=== PATIENT | male | born 1955 | race Two or more races ===

== ENCOUNTER 2025-09-13 18:41 | Inpatient (IN) | payer MEDICARE, MEDICAID ==
[~2025-09-13] VITALS: Ht 160 cm; Wt 68.0 kg
--- NOTE | 2025-09-13 18:53 | ED.PDOC ---
History of Present Illness HPI Comments REVIEW OF SYSTEMS: General: No fever, no chills, or fatigue HEENT: No sore throat, no earache, no congestion, no neck pain. Cardiac: No chest pain. No palpitations. Lungs: (+) shortness of breath, no cough. GI: No nausea, no vomiting, no diarrhea, no constipation, no abdominal pain : No dysuria, frequency, or urgency. No hematuria. Musculoskeletal: No joint pain , no joint swelling, no extremity edema. Skin: No rash, no itching. Neuro: No headache, no dizziness, no weakness EXAM: General: Awake, alert and oriented. No acute distress. Skin: Skin in warm, dry and intact. Appropriate color for ethnicity. HEENT: The head is normocephalic and atraumatic. Conjunctivae are clear without exudates or hemorrhage. Sclera is non-icteric. EOM are intact. No signs of nystagmus. Eyelids are normal in appearance without swelling or lesions. Oral mucosa is pink and moist Neck: The neck is supple with normal range of motion. No JVD. Cardiac: Heart rate and rhythm are normal. No murmurs, gallops, or rubs are auscultated. Respiratory: No signs of respiratory distress. Lung sounds are clear in all lobes bilaterally without rales, rhonchi, or wheezes. Abdominal: Abdomen is soft, non-tender without distention. Bowel sounds are present and normoactive in all four quadrants. Extremities: Upper and lower extremities are atraumatic in appearance without deformity or edema. Neurological: The patient is awake, alert and oriented to person, place, and time with normal speech. Speech is clear. There is no facial asymmetry. Psychiatric: Appropriate mood and affect. Good judgement and insight Chief Complaint: Shortness of breath Time Seen by MD: 18:52 Reviewed Notes: [employer] Notes Allergies: Coded Allergies: Iodine (Unverified Allergy, Unknown, 05/31/25) Information Source: Patient, Emergency Med Personnel Mode of Arrival: EMS Past Medical History PAST MEDICAL HISTORY: CHF, CKF, COPD, CVA, DM, High Lipids, HTN, Liver, [place] Family History Family History: Family hx of heart shoaib Social History Smoker: Non-Smoker Alcohol: Denies ETOH Use Drugs: Denies Drug Use Lives In: Home Was a procedure done? Was a procedure done?: No Differential Dx Considerations may include: COPD, congestive heart failure, pneumonia, acute respiratory failure Time of 1ST Reevaluation: 18:49 Reevaluation 1ST: Unchanged Patient Education/Counseling: Need For Follow Up Family Education/Counseling: No Family Present Critical Care Note Critical Care Time?: Yes (35 min-critical care time only) Stability Stability form required: No Heart Score Heart Score: Heart Score Response (Comments) Value History Slightly Suspicious 0 EKG Repolarization Disturb 1 Age >65 2 Risk Factors 1 or 2 risk factors 1 Troponin Normal limit 0 Total 4 I personally scribed for ROME CHEEMA MD ([email or web address]) on 09/13/25 at 18:53. Electronically submitted by Michael Gallego ([email or web address]). I personally scribed for ROME CHEEMA MD ([email or web address]) on 09/13/25 at 18:59. Electronically submitted by Michael Gallego (Hotreader). ROME CHEEMA MD Sep 13, 2025 18:53
--- NOTE | 2025-09-13 19:07 | ECG ---
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
--- NOTE | 2025-09-13 19:32 | ED.PDOC ---
SOB-HPI HPI Comments This is a 69 year old male BIBA presenting to the ED with chief complaint of SOB. Patient reports that he has been experiencing SOB worsening over the past 3 days with associated weakness. Patient relays that his weakness is currently making him unable to get out of bed on his own, calling 911 for assistance. Patient denies any cough, fever, chills, N/V, chest pain, or syncope. Chief Complaint: Shortness of Breath Time Seen by MD: 19:30 Reviewed notes: Nurses Notes, Medications, Allergies Information Source: Patient Mode of Arrival: EMS Severity: Moderate Timing: Days Duration: Since onset Context: At Rest PE Risk Factors: None History of: COPD, CHF Prehospital treatment: None Modifying Factors: Nothing Past Medical History PAST MEDICAL HISTORY: CHF, CKF, COPD, CVA, DM, High Lipids, HTN, Liver, [place] Surgical History: Denies all surgeries Family History Family History: Reviewed,noncontributory to illness, Family hx of heart shoaib Social History Smoker: Non-Smoker Alcohol: Denies ETOH Use Drugs: Denies Drug Use Lives In: Home Constitutional: reports: weakness; denies: chills, diaphoresis, fatigue, fever, malaise, sweats, others EENTM: denies: blurred vision, double vision, ear bleeding, ear discharge, ear drainage, ear pain, ear ringing, eye pain, eye redness, hearing loss, mouth pain, mouth swelling, nasal discharge, nose bleeding, nose congestion, nose pain, photophobia, tearing, throat pain, throat swelling, voice changes, others Respiratory: reports: shortness of breath; denies: cough, hemoptysis, orthopnea, SOB at rest, SOB with excertion, stridor, wheezing, others Cardiovascular: denies: chest pain, dizzy spells, diaphoresis, Dyspnea on exertion, edema, irregular heart beat, left arm pain, lightheadedness, palpitations, PND, syncope, others Gastrointestinal: denies: abdomen distended, abdominal pain, blood streaked bowels, constipated, diarrhea, dysphagia, difficulty swallowing, hematemesis, melena, nausea, poor appetite, poor fluid intake, rectal bleeding, rectal pain, vomiting, others Genitourinary: denies: burning, dysuria, flank pain, frequency, hematuria, incontinence, penile discharge, penile sore, pain, testicle pain, testicle swelling, urgency, others Neurological: denies: dizziness, fainting, headache, left sided numbness, left sided weakness, numbness, paresthesia, pre-existing deficit, right sided numbness, right sided weakness, seizure, speech problems, tingling, tremors, weakness, others Musculoskeletal: denies: back pain, gout, joint pain, joint swelling, muscle pain, muscle stiffness, neck pain, others Integumetry: denies: bruises, change in color, change in hair/nails, dryness, laceration, lesions, lumps, rash, wounds, others Allergic/Immunocompromised: denies: Difficulty Healing, Frequent Infections, Hives, Itching, others Hematologic/Lymphatic: denies: anemia, blood clots, easy bleeding, easy bruising, swollen glands, others Endocrine: denies: excessive hunger, excessive sweating, excessive thirst, excessive urination, flushing, intolerance to cold, intolerance to heat, unexplained weight gain, unexplained weight loss, others Psychiatric: denies: anxiety, bipolar disorder, depression, hopeless, panic disorder, schizophrenia, sleepless, suicidal, others All Other Systems: Reviewed and Negative Physical Exam General Appearance: No Apparent Distress, Normal HEENT: Normal ENT Inspection, Pharynx Normal, TMs Normal Neck: Full Range of Motion, Non-Tender, Normal, Normal Inspection Respiratory: Chest Non-Tender, Lungs Clear, No Accessory Muscle Use, No Respiratory Distress, Normal Breath Sounds Cardiovascular: No Edema, No JVD, No Murmur, No Gallop, Normal Peripheral Pulses, Regular Rate/Rhythm Breast Exam: Deferred Gastrointestinal: No Organomegaly, Non Tender, No Pulsatile Mass, Normal Bowel Sounds, Soft Genitalia: Deferred Pelvic: Deferred Rectal: Deferred Extremities: No calf tenderness, Normal capillary refill, Normal inspection, Normal range of motion, Non-tender, No pedal edema Musculoskeletal : Apperance: Normal Neurologic: Alert, 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 Was a procedure done?: No Differential Dx Differential Diagnosis: Cardiogenic Shock, CHF, COPD, Dysrhythmia, Hypertension, Hyponatremia, Myocardial infarction X-Ray, Labs, Meds, VS Vital Signs Date Time Temp Pulse Resp B/P (MAP) Pulse Ox O2 Delivery O2 Flow Rate FiO2 09/13/25 19:53 18 99 Nasal Cannula* 2 28 09/13/25 18:51 94 09/13/25 18:41 97.5 92 19 144/98 97 97.5 Lab Test 09/13/25 20:48 09/13/25 19:40 Range/Units Troponin I High Sensitivity Pending 64 *H </=54 ng/L White Blood Count 11.4 H 4.4-10.8 10^3/uL Red Blood Count 4.10 L 4.5-5.90 10^6/uL Hemoglobin 11.4 L 13.5-17.5 g/dL Hematocrit 35.1 L 41.0-53.0 % Mean Corpuscular Volume 85.6 80.0-100.0 fL Mean Corpuscular Hemoglobin 27.9 L 28.0-32.0 pg Mean Corpuscular Hemoglobin Concent 32.6 32.0-36.0 g/dL Red Cell Distribution Width 16.9 H 11.8-14.3 % Platelet Count 204 140-450 10^3/uL Mean Platelet Volume 8.1 6.9-10.8 fL Neutrophils (%) (Auto) 80.3 H 37.0-80.0 % Lymphocytes (%) (Auto) 12.0 10.0-50.0 % Monocytes (%) (Auto) 6.4 0.0-12.0 % Eosinophils (%) (Auto) 0.5 0.0-7.0 % Basophils (%) (Auto) 0.8 0.0-2.0 % Neutrophils # (Auto) 9.2 H 1.6-8.6 10 ^3/uL Lymphocytes # (Auto) 1.4 0.4-5.4 10 ^3/uL Monocytes # (Auto) 0.7 0-1.3 10 ^3/uL Eosinophils # (Auto) 0.1 0-0.8 10 ^3/uL Basophils # (Auto) 0.1 0-0.2 10 ^3/uL Nucleated Red Blood Cells 0.1 % Sodium Level 143 136-145 mmol/L Potassium Level 4.7 3.5-5.1 mmol/L Chloride Level 109 H 98-107 mmol/L Carbon Dioxide Level 21 20-31 mmol/L Anion Gap 13 5-15 Blood Urea Nitrogen 52 H 9-23 mg/dL Creatinine 3.22 H 0.700-1.30 mg/dL Glomerular Filtration Rate Calc 20 >90 mL/min BUN/Creatinine Ratio 16.1 10.0-20.0 Serum Glucose 99 74-106 mg/dL Lactic Acid Level 1.2 0.4-2.0 mmol/L Calcium Level 9.0 8.7-10.4 mg/dL Total Bilirubin 0.9 0.2-1.0 mg/dL Aspartate Amino Transferase (AST) 108 H 13-40 U/L Alanine Aminotransferase (ALT) 124 H 7-40 U/L Alkaline Phosphatase 125 H 46-116 U/L B-Type Natriuretic Peptide 1913.25 0-100 pg/mL Total Protein 6.5 5.7-8.2 g/dL Albumin 4.0 3.2-4.8 g/dL Current Medications Medications (Trade) Dose Ordered Sig/Alexandrea Route Start Time Stop Time Status Last Admin Albuterol (Ventolin Medneb) 2.5 mg ONCE ONCE NEB 09/13/25 19:30 09/13/25 19:31 DC 09/13/25 19:53 Ipratropium [place] (Atrovent Medneb) 0.5 mg ONCE ONCE NEB 09/13/25 19:30 09/13/25 19:31 DC 09/13/25 19:53 Methylprednisolone Sodium Succinate (Solu Medrol) 125 mg ONCE ONCE IM 09/13/25 19:30 09/13/25 19:31 DC 09/13/25 21:05 [place] [id number] Ph: [phone] DIAGNOSTIC IMAGING Diagnostic Imaging Report : [id number] Signed PATIENT: AZUL MCELROY ACCT: [id number] UNIT: [id number] : 1955 LOC: ER ROOM / BED: / AGE / SEX: 69 / M ADM STATUS: REG ER SERVICE 17 ORDERING PHYSICIAN: RANJANA FRANZ PROCEDURE(s): CXR1 - CHEST XRAY 1 VIEW REASON: SOB ORDER NUMBER(s): [id number], ACCESSION NUMBER(s): [id number] CHEST RADIOGRAPH Indication: SOB Technique: Single frontal view of the chest was obtained Comparison: XY CHEST PORTABLE on DOS: 05/31/25 FINDINGS: Lines and Tubes: None Lungs: No focal consolidation. Diffuse interstitial prominence. Indistinctness of the left hemidiaphragm which may be from overlying cardiac silhouette. No pneumothorax. Cardiomediastinal contours: [id number] cardiomegaly. Midline sternotomy wires are noted. Valvular replacement is noted. Bones: No acute osseous abnormality. IMPRESSION: Cardiomegaly with findings suggestive of congestive heart failure. Underlying infectious process can not be excluded. ATED BY: CHERYL SHARMA DO DICTATED DATE/TIME: 09/13/251947 SIGNED BY: CHERYL SHARMA DO SIGNED DATE/TIME: 09/13/251947 CC: X-Ray, Labs, Meds, VS Comment Patient will be admitted for COPD exacerbation, CHF exacerbation, acute elevated troponins , acute kidney injury Patient is started on Bumex, given breathing treatments Recommend cardiac consult and pulmonology consult Patient hemodynamically stable Images Reviewed?: Images reviewed and evaluated by me Time of 1ST Reevaluation: 18:49 Reevaluation 1ST: Unchanged Patient Education/Counseling: Diagnosis, Treatment Family Education/Counseling: No Family Present SEPSIS Sepsis Screen Date sepsis recognized/suspect: Sep 13, 2025 Time Sepsis recognized/suspect: 1899 Recent Procedure: No On Antibiotic Therapy: No Respiratory Rate >20: No Heart Rate >90: No Temp<36 C (96.8 F) or >38.3 C: No SBP <90 or MAP <65 mmHG: No New Acute Mental Status Change: No Is the patient on CPAP, BIPAP,: No Physician Orders Urinalysis (09/13/25 19:18) Chest Xray 1 View (09/13/25 19:18) Troponin-I Hs (09/13/25 20:18) Troponin-I Hs (09/13/25 22:18) Vital Signs Date Time Temp Pulse Resp B/P (MAP) Pulse Ox O2 Delivery O2 Flow Rate FiO2 09/13/25 19:53 18 99 Nasal Cannula* 2 28 09/13/25 18:51 94 09/13/25 18:41 97.5 92 19 144/98 97 97.5 Laboratory Tests Test 09/13/25 19:40 Lactic Acid Level 1.2 mmol/L (0.4-2.0) White Blood Count 11.4 10^3/uL (4.4-10.8) H Medications Medications Dose Ordered Sig/Alexandrea Route Start Time Stop Time Status Last Admin Dose Admin Albuterol 2.5 mg ONCE ONCE NEB 09/13/25 19:30 09/13/25 19:31 DC 09/13/25 19:53 Ipratropium [place] 0.5 mg ONCE ONCE NEB 09/13/25 19:30 09/13/25 19:31 DC 09/13/25 19:53 Methylprednisolone Sodium Succinate 125 mg ONCE ONCE IM 09/13/25 19:30 09/13/25 19:31 DC 09/13/25 21:05 Departure 1 Departure Time of Disposition: 18:49 Impression: Primary Impression: CHF (congestive heart failure) Qualified Codes: I50.22 - Chronic systolic (congestive) heart failure Additional Impressions: COPD (chronic obstructive pulmonary disease) Qualified Codes: J44.1 - Chronic obstructive pulmonary disease with (acute) exacerbation Acute kidney injury Elevated troponin Disposition: ADMITTED INPATIENT Condition: Stable Critical Care Note Critical Care Time?: No Stability Stability form required: No Heart Score Heart Score: Heart Score Response (Comments) Value History N/A 0 EKG N/A 0 Age N/A 0 Risk Factors N/A 0 Troponin N/A 0 Total 0 I personally scribed for RANJANA FRANZ ([email or web address]) on 09/13/25 at 19:32. Electronically submitted by Daljit Richardson ([email or web address]). I personally scribed for RANJANA FRANZP ([email or web address]) on 09/13/25 at 19:57. Electronically submitted by Daljit Richardson ([email or web address]). RANJANA FRANZ Sep 13, 2025 19:32
--- NOTE | 2025-09-13 19:50 | DVH ---
CHEST RADIOGRAPH Indication: SOB Technique: Single frontal view of the chest was obtained Comparison: XY CHEST PORTABLE on DOS: 05/31/25 FINDINGS: Lines and Tubes: None Lungs: No focal consolidation. Diffuse interstitial prominence. Indistinctness of the left hemidiaphragm which may be from overlying cardiac silhouette. No pneumothorax. Cardiomediastinal contours: [id number] cardiomegaly. Midline sternotomy wires are noted. Valvular replacement is noted. Bones: No acute osseous abnormality. IMPRESSION: Cardiomegaly with findings suggestive of congestive heart failure. Underlying infectious process can not be excluded.
[2025-09-13] MEDS: ALBUTEROL SULF 2.5 MG/0.5ML(0.5%) NEB SOLN NEB ONE ×2 (19:53→22:00)
[2025-09-13] MEDS: IPRATROPIUM BROM 0.5 MG/2.5ML INH SOL NEB ONE ×2 (19:53→21:59)
[2025-09-13 20:17] LABS: Hematocrit 35.1 % (41.0-53.0); Hemoglobin 11.4 g/dL (13.5-17.5); Mean Corpuscular Hemoglobin 27.9 pg (28.0-32.0); Mean Corpuscular Volume 85.6 fL (80.0-100.0); Nucleated Red Blood Cells % 0.1 %
[2025-09-13 20:34] LABS: Albumin 4.0 g/dL (3.2-4.8); Anion Gap 13 (5-15); BUN/Creatinine Ratio 16.1 (10.0-20.0); Calcium 9.0 mg/dL (8.7-10.4); Carbon Dioxide 21 mmol/L (20-31); Glucose 99 mg/dL (74-106); Potassium 4.7 mmol/L (3.5-5.1); Sodium 143 mmol/L (136-145); Total Protein 6.5 g/dL (5.7-8.2)
[2025-09-13 20:35] LABS: Bilirubin, Total 0.9 mg/dL (0.2-1.0)
[2025-09-13 20:37] LABS: Alanine Aminotransferase 124 U/L (7-40); Alkaline Phosphatase 125 U/L (46-116); Blood Urea Nitrogen 52 mg/dL (9-23); Chloride 109 mmol/L (98-107)
[2025-09-13] MEDS: methylPREDNISolone SOD SUCC 125 MG/2 ML VL IM ONE (21:05)
[2025-09-13] MEDS ORDERED: NITROGLYCERIN 0.4 MG SL TAB SL PRN (22:45)
[2025-09-13] MEDS ORDERED: MORPHINE SULFATE INJ 2 MG/ml SYRG IV PRN (22:45)
[2025-09-13] MEDS ORDERED: ONDANSETRON HCL 4 MG/2 ML VIAL IV PRN (22:45)
[2025-09-13] MEDS ORDERED: DEXTROSE (50%) 50ML SYRG IV PRN (22:45)
[2025-09-13 22:52] VITALS: BP 144/98; PULSE 92; RESP 20; TEMP 97.5; O2SAT 94
[2025-09-13 23:17] LABS: INR 1.36 (0.9-1.15); Partial Thromboplastin Time 31.9 SEC (24.5-34.5); Prothrombin Time 14.0 sec (9.3-11.8)
[2025-09-14] VITALS (14 sets, daily range): BP systolic 126; BP diastolic 83; PULSE 80–100; RESP 14–22; TEMP 97.6; O2SAT 93–100
--- NOTE | 2025-09-14 01:01 | DVHHP2 ---
History of Present Illness Reason for Visit: Shortness for breath History of Present Illness 69-year-old male presents for evaluation of shortness for breath. Patient endorses a three day history of worsening shortness for breath with associated chest tightness. Denies leg swelling or abdominal distention. No other acute complaints reported. Past Medical History CVA, diabetes mellitus, dyslipidemia, hypertension, liver disease, COPD, chronic kidney disease Past Surgical History Denies Family History Noncontributory Smoke: No ALCOHOL: none Drugs: None Lives: with Family Review of Systems Review of Systems Review of systems are currently negative otherwise addressed in HPI. Allergies: Coded Allergies: Iodine (Unverified Allergy, Unknown, 05/31/25) Medications Current Medications Medications Dose Ordered Sig/Alexandrea Route Start Time Stop Time Status Last Admin Dose Admin Furosemide 40 mg BIDD IV 09/14/25 06:00 Atorvastatin Calcium 80 mg HS PO 09/14/25 22:00 Metoprolol Tartrate 50 mg BID PO 09/14/25 10:00 Sacubitril/ Valsartan 1 tab BID PO 09/14/25 10:00 Sodium Bicarbonate 650 mg TID PO 09/14/25 06:00 Albuterol 2.5 mg Q6HPRN PRN NEB 09/13/25 22:45 Diagnostic Test (Pha) 1 strip Q6HR 09/14/25 00:00 Insulin Human Regular Q6HR SC 09/14/25 00:00 Dextrose 50 ml UD PRN IV 09/13/25 22:45 Ondansetron HCl 4 mg Q4HP PRN IV 09/13/25 22:45 Acetaminophen 650 mg Q6HP PRN PO 09/13/25 22:45 Nitroglycerin 0.4 mg Q5MINP PRN SL 09/13/25 22:45 Morphine Sulfate 2 mg Q30M PRN IV 09/13/25 22:45 Exam Vital Signs Vital Signs Date Time Temp Pulse Resp B/P (MAP) Pulse Ox O2 Delivery O2 Flow Rate FiO2 09/13/25 22:52 97.5 92 20 144/98 94 2.0 97.5 09/13/25 22:00 Nasal Cannula* 28 Exam Gen: 69-year-old male in mild distress. Skin: Warm, dry, normal color and texture, no rash. HEENT: Normocephalic atraumatic, mucous membranes moist and pink. Neck: Cervical and supraclavicular nodes normal without enlargement, trachea is midline, thyroid gland is normal without masses. Pulmonary: Clear to auscultation and percussion bilaterally. Cardiac: Regular rate and rhythm. No murmur Abdomen: Soft, nontender, nondistended, bowel sounds present all 4 quadrants, no guarding, no rigidity, no organomegaly. Extremities: No cyanosis, clubbing, no edema Neuro: Cranial nerves II through XII grossly intact, normal affect and speech, no focal motor deficits. Labs/Xrays ORDERING PHYSICIAN: RANJANA FRANZ PROCEDURE(s): CXR1 - CHEST XRAY 1 VIEW REASON: SOB ORDER NUMBER(s): [id number], ACCESSION NUMBER(s): [id number] CHEST RADIOGRAPH Indication: SOB Technique: Single frontal view of the chest was obtained Comparison: XY CHEST PORTABLE on DOS: 05/31/25 FINDINGS: Lines and Tubes: None Lungs: No focal consolidation. Diffuse interstitial prominence. Indistinctness of the left hemidiaphragm which may be from overlying cardiac silhouette. No pneumothorax. Cardiomediastinal contours: [id number] cardiomegaly. Midline sternotomy wires are noted. Valvular replacement is noted. Bones: No acute osseous abnormality. IMPRESSION: Cardiomegaly with findings suggestive of congestive heart failure. Underlying infectious process can not be excluded. Labs Test 09/13/25 22:45 09/13/25 19:40 Range/Units Troponin I High Sensitivity 64 *H </=54 ng/L White Blood Count 11.4 H 4.4-10.8 10^3/uL Red Blood Count 4.10 L 4.5-5.90 10^6/uL Hemoglobin 11.4 L 13.5-17.5 g/dL Hematocrit 35.1 L 41.0-53.0 % Mean Corpuscular Volume 85.6 80.0-100.0 fL Mean Corpuscular Hemoglobin 27.9 L 28.0-32.0 pg Mean Corpuscular Hemoglobin Concent 32.6 32.0-36.0 g/dL Red Cell Distribution Width 16.9 H 11.8-14.3 % Platelet Count 204 140-450 10^3/uL Mean Platelet Volume 8.1 6.9-10.8 fL Neutrophils (%) (Auto) 80.3 H 37.0-80.0 % Lymphocytes (%) (Auto) 12.0 10.0-50.0 % Monocytes (%) (Auto) 6.4 0.0-12.0 % Eosinophils (%) (Auto) 0.5 0.0-7.0 % Basophils (%) (Auto) 0.8 0.0-2.0 % Neutrophils # (Auto) 9.2 H 1.6-8.6 10 ^3/uL Lymphocytes # (Auto) 1.4 0.4-5.4 10 ^3/uL Monocytes # (Auto) 0.7 0-1.3 10 ^3/uL Eosinophils # (Auto) 0.1 0-0.8 10 ^3/uL Basophils # (Auto) 0.1 0-0.2 10 ^3/uL Nucleated Red Blood Cells 0.1 % Prothrombin Time 14.0 H 9.3-11.8 sec Prothrombin Time INR 1.36 H 0.9-1.15 Activated Partial Thromboplast Time 31.9 24.5-34.5 SEC Sodium Level 143 136-145 mmol/L Potassium Level 4.7 3.5-5.1 mmol/L Chloride Level 109 H 98-107 mmol/L Carbon Dioxide Level 21 20-31 mmol/L Anion Gap 13 5-15 Blood Urea Nitrogen 52 H 9-23 mg/dL Creatinine 3.22 H 0.700-1.30 mg/dL Glomerular Filtration Rate Calc 20 >90 mL/min BUN/Creatinine Ratio 16.1 10.0-20.0 Serum Glucose 99 74-106 mg/dL Lactic Acid Level 1.2 0.4-2.0 mmol/L Calcium Level 9.0 8.7-10.4 mg/dL Total Bilirubin 0.9 0.2-1.0 mg/dL Aspartate Amino Transferase (AST) 108 H 13-40 U/L Alanine Aminotransferase (ALT) 124 H 7-40 U/L Alkaline Phosphatase 125 H 46-116 U/L B-Type Natriuretic Peptide 1913.25 0-100 pg/mL Total Protein 6.5 5.7-8.2 g/dL Albumin 4.0 3.2-4.8 g/dL SEPSIS Sepsis Screen Date sepsis recognized/suspect: Sep 13, 2025 Time Sepsis recognized/suspect: 1899 Recent Procedure: No On Antibiotic Therapy: No Respiratory Rate >20: No Heart Rate >90: No Temp<36 C (96.8 F) or >38.3 C: No SBP <90 or MAP <65 mmHG: No New Acute Mental Status Change: No Is the patient on CPAP, BIPAP,: No Physician Orders Urinalysis (09/13/25 19:18) Chest Xray 1 View (09/13/25 19:18) Furosemide Injection (Lasix Injection) (09/14/25 06:00) Atorvastatin (Lipitor) (09/14/25 22:00) Metoprolol Tartrate Tablet (Lopressor Ta (09/14/25 10:00) Sacubitril-Valsartan (Entresto 24-26 Mg (09/14/25 10:00) Sodium Bicarb Tab (09/14/25 06:00) * Cardiology Consult (09/13/25 22:31) *[facility] (09/13/25 22:31) Albuterol Medneb (Ventolin Medneb) (09/13/25 22:45) Basic Metabolic Panel (09/14/25 04:00) Glucose Blood (Accu-Chek Comfort Curve T (09/14/25 00:00) Insulin R (Human) (Insulin R) (09/14/25 00:00) Dextrose 50% Syringe (09/13/25 22:45) Admit (09/13/25 22:31) Renal Standard(2gna,3gk,Lopho) (09/14/25 Breakfast) Ondansetron Hcl (Zofran) (09/13/25 22:45) Echo 2d Mode Cardiac Dop (09/13/25 22:31) Condition: Fair (09/13/25 22:31) Acetaminophen Tablet (Tylenol Tablet) (09/13/25 22:45) Bedrest With Bathroom Privileg (09/13/25 22:31) Nitroglycerin Sublingual (Ntrostat Subli (09/13/25 22:45) Morphine Sulfate Injection (09/13/25 22:45) Stat Ekg For Chest Pain (09/13/25 22:31) Notify Md Of Changes From Base (11/10/25 22:31) Lastex Thread Winder For 24 Hours (09/13/25 22:31) Emergency Dysrhythmia Protocol (09/13/25 22:31) Rhythm Strips Once Every Shift (09/13/25 22:31) Oxygen By Nasal Cannula (09/13/25 22:31) Vital Signs Date Time Temp Pulse Resp B/P (MAP) Pulse Ox O2 Delivery O2 Flow Rate FiO2 09/13/25 22:52 97.5 92 20 144/98 94 2.0 97.5 09/13/25 22:00 20 94 Nasal Cannula* 2 28 09/13/25 19:53 18 99 Nasal Cannula* 2 28 09/13/25 18:51 94 09/13/25 18:41 97.5 92 19 144/98 97 97.5 Laboratory Tests Test 09/13/25 19:40 Lactic Acid Level 1.2 mmol/L (0.4-2.0) White Blood Count 11.4 10^3/uL (4.4-10.8) H Medications Medications Dose Ordered Sig/Alexandrea Route Start Time Stop Time Status Last Admin Dose Admin Albuterol 2.5 mg ONCE ONCE NEB 09/13/25 19:30 09/13/25 19:31 DC 09/13/25 19:53 2.5 MG Albuterol 2.5 mg ONCE ONCE NEB 09/13/25 21:30 09/13/25 21:31 DC 09/13/25 22:00 2.5 MG Ipratropium [place] 0.5 mg ONCE ONCE NEB 09/13/25 19:30 09/13/25 19:31 DC 09/13/25 19:53 0.5 MG Ipratropium [place] 0.5 mg ONCE ONCE NEB 09/13/25 21:30 09/13/25 21:31 DC 09/13/25 21:59 0.5 MG Methylprednisolone Sodium Succinate 125 mg ONCE ONCE IM 09/13/25 19:30 09/13/25 19:31 DC 09/13/25 21:05 125 MG Assessment/Plan Assessment/Plan Assessment Acute on chronic congestive heart failure Diabetes mellitus Hypertension Elevated troponin, demand ischemia Renal failure Transaminitis, possible venous congestion Plan Admit the patient to telemetry to the hospitalist Cardiology consultation Nephrology consultation Resume home medications Continue treatment per orders Plan discussed with: Patient My Orders Orders - XU LORA AGACNP Procedure Category Date Status Time Furosemide Injection PHA 09/14/25 In Process (Lasix Injection) 06:00 Atorvastatin (Lipitor) PHA 09/14/25 In Process 22:00 Metoprolol Tartrate PHA 09/14/25 In Process Tablet (Lopressor Ta 10:00 Sacubitril-Valsartan PHA 09/14/25 In Process (Entresto 24-26 Mg 10:00 Sodium Bicarb Tab PHA 09/14/25 In Process 06:00 * Cardiology Consult CONS 09/13/25 Transmitted 22:31 *[facility] CONS 09/13/25 Transmitted -[place] 22:31 Albuterol Medneb PHA 09/13/25 In Process (Ventolin Medneb) 22:45 Basic Metabolic Panel LAB 09/14/25 Logged 04:00 Glucose Blood PHA 09/14/25 In Process (Accu-Chek Comfort 00:00 Insulin R (Human) PHA 09/14/25 In Process (Insulin R) 00:00 Dextrose 50% Syringe PHA 09/13/25 In Process 22:45 Admit ADMIT 09/13/25 Transmitted 22:31 Renal DIET 09/14/25 Transmitted Standard(2gna,3gk,Lopho) Breakfast Ondansetron Hcl PHA 09/13/25 In Process (Zofran) 22:45 Echo 2d Mode Cardiac US 09/13/25 Logged DOP 22:31 Condition: Fair [facility] 09/13/25 In Process 22:31 Acetaminophen Tablet PHA 09/13/25 In Process (Tylenol Tablet) 22:45 Bedrest With Bathroom [place] 09/13/25 In Process Privileg 22:31 Nitroglycerin [facility] 09/13/25 In Process Sublingual (Ntrostat 22:45 Morphine Sulfate PHA 09/13/25 In Process Injection 22:45 Stat Ekg For Chest [facility] 09/13/25 In Process Pain 22:31 Notify Of Changes [facility] 09/13/25 In Process From Base 22:31 Lastex Thread Winder For [facility] 09/13/25 In Process 24 Hours 22:31 Emergency Dysrhythmia [facility] 09/13/25 In Process Protocol 22:31 Rhythm Strips Once [facility] 09/13/25 In Process Every Shift 22:31 Oxygen By Nasal RT 09/13/25 Transmitted Cannula 22:31 Date of Service: Sep 13, 2025 Billing Provider: XU LORA Common Visit Codes: [id number] INP/OBS CARE (HIGH) XU LORA Sep 14, 2025 01:01
[2025-09-14] MEDS: InsuLIN REG 1unit/0.01ml Soln (100units/ml) SC SCH (01:43)
[2025-09-14] MEDS: ACCU-CHEK COMFORT CURVE STRIP VI SCH (01:45)
[2025-09-14] MEDS: BUMETANIDE 1mg/4ml VIAL (0.25mg/ml) IV ONE (02:22)
[2025-09-14] MEDS: HYDROcodone-ACET 7.5/325MG TAB PO ONE (03:35)
[2025-09-14] MEDS: ALBUTEROL SULF 2.5 MG/0.5ML(0.5%) NEB SOLN NEB PRN (04:49)
[2025-09-14 05:41] LABS: Urine Protein, UAD 1+ (Negative)
[2025-09-14] MEDS: FUROSEMIDE 40 MG/4 ML VIAL IV SCH (06:00)
[2025-09-14] MEDS: SODIUM BICARBONATE 650 MG TAB PO SCH (06:00)
[2025-09-14 07:20] LABS: Potassium 4.6 mmol/L (3.5-5.1); Sodium 143 mmol/L (136-145)
[2025-09-14 07:21] LABS: Anion Gap 15 (5-15); Carbon Dioxide 20 mmol/L (20-31)
[2025-09-14 07:22] LABS: Calcium 8.8 mg/dL (8.7-10.4)
[2025-09-14 07:27] LABS: BUN/Creatinine Ratio 15.0 (10.0-20.0)
[2025-09-14 07:32] LABS: Blood Urea Nitrogen 50 mg/dL (9-23); Chloride 108 mmol/L (98-107); Glucose 224 mg/dL (74-106)
[2025-09-14 08:00] LABS: Hematocrit 33.4 % (41.0-53.0); Hemoglobin 10.6 g/dL (13.5-17.5); Mean Corpuscular Hemoglobin 27.8 pg (28.0-32.0); Mean Corpuscular Volume 87.5 fL (80.0-100.0); Nucleated Red Blood Cells % 0.1 %
--- NOTE | 2025-09-14 09:59 | DVHCONRES ---
Date Seen: Sep 14, 2025 Resident Creating Document: PAULINO OWENS RESIDENT Referring Physician GENO SANCHEZ History of Present Illness This is a 69-year-old male with diabetes mellitus type 2 on insulin for the past 5 years, heart failure with reduced ejection fraction-EF 30%, COPD on 2 L home oxygen, history of CVA, asthma, aortic valve replacement 2003 on warfarin, CKD stage 4 who presented to the ER with a chief complaint of shortness of breaths for the past 3 days. Patient had dental extraction on 09/11, following which he started to feel fevers and chills, associated with shortness of breaths and productive cough. With greenish brown phlegm patient increased his oxygen re quirement from 2 L to 3 L which did not improve his condition. He reports compliance to Lasix, he takes 40 mg in the day, 20 mg in the night. Patient reports generalized weakness. Transthoracic echocardiogram from 05/12/2025 reveals an EF of 30% with moderate to severe mitral insufficiency and moderate tricuspid regurgitation. Past MedicalSurgical History: Diabetes Mellitus type 2, HFrEF 30%, COPD with home oxygen 2L, CVA, asthma, CKD stage 4,aortic valve replacement 2003 on warfarin Past Social History: The patient lives at home, smokes 3 cigarettes per day, denies alcohol or illicit drugs abuse. Home medication: Warfarin, Entresto, Lasix 20 mg b.i.d., hydralazine TDS, metoprolol, isosorbide dinitrate, dapagliflozin Allergies: Coded Allergies: Iodine (Unverified Allergy, Unknown, 05/31/25) Current Medications Current Medications Medications (Trade) Dose Ordered Sig/Alexandrea Route PRN Reason Start Time Stop Time Status Last Admin Furosemide (Lasix Injection) 40 mg BIDD IV 09/14/25 06:00 09/14/25 06:00 Atorvastatin Calcium (Lipitor) 80 mg HS PO 09/14/25 22:00 Metoprolol Tartrate (Lopressor Tablet) 50 mg BID PO 09/14/25 10:00 Sacubitril/ Valsartan (Entresto 24-26 Mg tab) 1 tab BID PO 09/14/25 10:00 Sodium Bicarbonate 650 mg TID PO 09/14/25 06:00 09/14/25 06:00 Albuterol (Ventolin Medneb) 2.5 mg Q6HPRN PRN NEB SHORTNESS OF BREATH 09/13/25 22:45 09/14/25 04:49 Diagnostic Test (Pha) (Accu-Chek Comfort Curve T) 1 strip Q6HR 09/14/25 00:00 09/14/25 06:00 Insulin Human Regular (InsuLIN R) Q6HR SC 09/14/25 00:00 09/14/25 07:00 Dextrose 50 ml UD PRN IV Blood Sugar LESS THAN 60 09/13/25 22:45 Ondansetron HCl (Zofran) 4 mg Q4HP PRN IV NAUSEA / VOMITING 09/13/25 22:45 Acetaminophen (Tylenol Tablet) 650 mg Q6HP PRN PO PAIN SCALE 1-3 OR TEMP>100.4 09/13/25 22:45 Nitroglycerin (Ntrostat Sublingual) 0.4 mg Q5MINP PRN SL FOR CHEST PAIN 09/13/25 22:45 Morphine Sulfate 2 mg Q30M PRN IV FOR CHEST PAIN 09/13/25 22:45 Warfarin Sodium (Coumadin Per Rx Protocol) RX PROTOCOL PER PHARMACY PO 09/14/25 01:00 Ipratropium [place] (Atrovent Medneb) 0.5 mg Q6HR NEB 09/14/25 12:00 Ceftriaxone Sodium 50 ml @ 100 mls/hr DAILY@09 IV 09/14/25 09:00 09/14/25 09:04 Doxycycline Monohydrate (Vibramycin Tablet) 100 mg Q12HR PO 09/14/25 10:00 Vital Signs Vital Signs Date Time Temp Pulse Resp B/P (MAP) Pulse Ox O2 Delivery O2 Flow Rate FiO2 09/14/25 08:00 94 09/14/25 08:00 16 137/85 (102) 100 09/14/25 07:30 Nasal Cannula* 2 28 09/14/25 05:45 97.8 97.8 Physical Exam Overweight male patient lying in bed comfortably, no acute distress General: Overweight, palor, mucosae are moist Cardiovascular: Regular S1 and S2. No murmurs, gallops or rubs. No JVD elevation. No pedal edema Respiratory: Resolving Bilateral coarse rales heard on auscultation, more on left lower as compared to right. On NC 2 L saturating 94. Abdomen: Soft, nontender, nondistended, normoactive bowel sounds, no rebound tenderness, no organomegaly, no masses. Bruising seen on lower abdomen. Genitourinary: Deferred MSK/skin: Mobilizes 4 limbs. Skin is dry and warm Neurological: No motor, no sensitive deficits, normal speech. Pupils are isocoric and reactive. Psych/Mental Status: A/Ox3 Labs/Diagnostic Data Labs Test 09/14/25 08:50 09/14/25 06:53 09/14/25 06:32 09/13/25 22:45 Range/Units Vitamin B12 Level 417 211-911 pg/mL POC Glucose 195 H 70-106 mg/dl White Blood Count 8.2 # 4.4-10.8 10^3/uL Red Blood Count 3.82 L 4.5-5.90 10^6/uL Hemoglobin 10.6 L 13.5-17.5 g/dL Hematocrit 33.4 L 41.0-53.0 % Mean Corpuscular Volume 87.5 80.0-100.0 fL Mean Corpuscular Hemoglobin 27.8 L 28.0-32.0 pg Mean Corpuscular Hemoglobin Concent 31.7 L 32.0-36.0 g/dL Red Cell Distribution Width 16.5 H 11.8-14.3 % Platelet Count 153 140-450 10^3/uL Mean Platelet Volume 8.2 6.9-10.8 fL Neutrophils (%) (Auto) 97.1 H 37.0-80.0 % Lymphocytes (%) (Auto) 1.8 L 10.0-50.0 % Monocytes (%) (Auto) 0.8 0.0-12.0 % Eosinophils (%) (Auto) 0.1 0.0-7.0 % Basophils (%) (Auto) 0.2 0.0-2.0 % Neutrophils # (Auto) 8.0 1.6-8.6 10 ^3/uL Lymphocytes # (Auto) 0.1 L 0.4-5.4 10 ^3/uL Monocytes # (Auto) 0.1 0-1.3 10 ^3/uL Eosinophils # (Auto) 0 0-0.8 10 ^3/uL Basophils # (Auto) 0 0-0.2 10 ^3/uL Nucleated Red Blood Cells 0.1 % Sodium Level 143 136-145 mmol/L Potassium Level 4.6 3.5-5.1 mmol/L Chloride Level 108 H 98-107 mmol/L Carbon Dioxide Level 20 20-31 mmol/L Anion Gap 15 5-15 Blood Urea Nitrogen 50 H 9-23 mg/dL Creatinine 3.33 H 0.700-1.30 mg/dL Glomerular Filtration Rate Calc 19 >90 mL/min BUN/Creatinine Ratio 15.0 10.0-20.0 Serum Glucose 224 #H 74-106 mg/dL Hemoglobin A1c 5.6 <5.7 % A1C Calcium Level 8.8 8.7-10.4 mg/dL Thyroid Stimulating Hormone (TSH) 1.20 0.55-4.78 uIU/mL D-Dimer, Quantitative 0.84 H 0.0-0.49 mg/L FEU Troponin I High Sensitivity 64 *H </=54 ng/L Test 09/13/25 19:40 09/13/25 05:20 Range/Units Prothrombin Time 14.0 H 9.3-11.8 sec Prothrombin Time INR 1.36 H 0.9-1.15 Activated Partial Thromboplast Time 31.9 24.5-34.5 SEC Lactic Acid Level 1.2 0.4-2.0 mmol/L Total Bilirubin 0.9 0.2-1.0 mg/dL Aspartate Amino Transferase (AST) 108 H 13-40 U/L Alanine Aminotransferase (ALT) 124 H 7-40 U/L Alkaline Phosphatase 125 H 46-116 U/L B-Type Natriuretic Peptide 1913.25 0-100 pg/mL Total Protein 6.5 5.7-8.2 g/dL Albumin 4.0 3.2-4.8 g/dL Urine Color Colorless Yellow Urine Clarity Clear Clear Urine pH 5.0 5.0-9.0 Urine Specific [place] 1.008 1.001-1.035 Urine Protein 1+ H Negative Urine Ketones Negative Negative Urine Blood Trace H Negative /uL Urine Nitrite Negative Negative Urine Bilirubin Negative Negative Urine Urobilinogen Normal Negative mg/dL Urine Leukocyte Esterase Negative Negative /uL Urine RBC None seen 0 - 3 /hpf Urine Microscopic WBC < 1 0-3 /HPF Urine Squamous Epithelial Cells None seen <5 /hpf Urine Bacteria None seen None Seen /hpf Urine Glucose Trace Normal mg/dL Assessment Acute on chronic decompensated HFrEF, NYHA class III NTSEMI, type II secondary to above Nonischemic cardiomyopathy Severe aortic stenosis status post open-heart with mechanical valve replacement (on warfarin therapy) Mitral valve/tricuspid valve regurgitation, moderate to severe degree Acute hypoxic respiratory failure secondary to pneumonia Acute kidney injury likely superimposed on CKD stage 4 in the setting of pneumonia Pulmonary hypertension Anemia likely chronic kidney disease Secondary hyperparathyroidism Hypertension Hyperlipidemia History of CVA Obesity Plan/Recommendation Continue preload and afterload reduction as tolerated by patient blood pressures and renal function. Continue diuresis with Lasix 40 mg IV b.i.d. Continue GDMT for HFrEF as renal function permits, avoid nephrotoxic agents. Maintain Coumadin levels at therapeutic range for an INR in between 2-3. Continue lipid lowering agent. Strict I&Os, cardiac diet, fluid restriction If the patient is unable to tolerate aggressive preload and afterload reduction, and remains symptomatic, consider transfer to higher level of care for mitral clip evaluation. Nephrology consult and recommendations pending. Thank you for allowing us to care for this patient. Please call with any questions or concerns. Plan discussed with patient in which all questions have been answered Case discussed with Dr. Gutiérrez Plan discussed with: Patient Visit Coding Cardiology RES Date of Service: Sep 14, 2025 Billing Provider: NICOLE CARD Sr., MD Cardiology Common Codes: CONSULT ONLY PAULINO OWENS RESIDENT Sep 14, 2025 09:58
[2025-09-14] MEDS: SACUBITRIL-VALSARTAN 24mg/26mg TAB PO SCH (10:07)
[2025-09-14] MEDS: METOPROLOL TARTRATE 50 MG TAB PO SCH (10:07)
[2025-09-14] MEDS: DOXYCYCLINE 100 MG TAB/CAP PO SCH (10:08)
[2025-09-14 10:12] LABS: Magnesium 2.0 mg/dL (1.6-2.6)
[2025-09-14 11:13] LABS: INR 2.07 (0.9-1.15); Partial Thromboplastin Time 32.3 SEC (24.5-34.5); Prothrombin Time 20.4 sec (9.3-11.8)
--- NOTE | 2025-09-14 11:36 | DVH ---
INDICATION: MICHELLE TECHNIQUE: Multiple real-time sonographic images of the kidneys and bladder were obtained. COMPARISON: US KIDNEY on DOS: 10/16/24, US BILAT LOWER DVT on DOS: 08/10/24, US KIDNEY on DOS: 07/25/24, US LT UPPER DVT on DOS: 06/12/24, US KIDNEY on DOS: 06/06/24 FINDINGS: The right kidney measures 8 cm in length, which is normal in size. . No hydronephrosis. The left kidney measures 10 cm in length, which is normal in size. . No hydronephrosis. Increased bilateral echogenicity. No large intraluminal masses are seen in the bladder. Prior to voiding the bladder volume measures volume 155 cc. IMPRESSION: 1. Normal sonographic appearance of the kidneys. No hydronephrosis. Thickening of the bladder wall. Correlate with UA 2. Bilateral medical renal disease.
--- NOTE | 2025-09-14 12:04 | DVHSR ---
APPROVED REPORT EXAM: Two-dimensional and M-mode echocardiogram with Doppler and color Doppler. Blood Pressure: 140/93 mmHg INDICATION EF Surgery/Intervention Valve Replacement: Mechanical Type: AV RISK FACTORS Height: 63, Weight: 154 DIMENSIONS LVDd 5.1 (3.8-5.7cm) LA (2D) 4.6 (1.9-4.0cm) Aortic Root (2.0-3.7cm) LVDs 4.2 (2.5-4.0cm) LA (MM) (1.9-4.0cm) Aortic Cusp Exc (1.5-2.0cm) EF (%) 40.0 (55-70%) Rt. Atrium 4.8 (1.9-4.0cm) Asc. Aorta cm Mitral Valve Mitral Mitral Stenosis E wave 1.53m/s MV Mean GR. 6mmHg A wave 0.89m/s MV Peak GR. 150mmHg E/A ratio 1.7 2D MVA cm2 DECEL Time 152ms PRESS 1/2 Time 37ms IVRT ms Dop MVA 5.89cm2 Aortic Valve Aortic Valve Aortic Stenosis V1 0.82m/s AO Mean GR. 19mmHg V2 2.84m/s AO Peak GR. 32mmHg LVOT Diameter 2.2 (1.8-2.4cm) Doppler VIDAL 1.10cm2 Pulmonic Valve V2 0.78m/s Tricuspid Valve TR Velocity 3.84m/s RVSP 73mmHg Conclusion lvef 40% dilated LV cavity mild s/p mAVR, no sig AI severe mitral regurg moderate mitral stenosis, mean gradient of 6 mmhg severe tricuspid regurg trivial to small pericardial effusion ntoed
[2025-09-14] MEDS: IPRATROPIUM BROM 0.5 MG/2.5ML INH SOL NEB SCH (14:00)
--- NOTE | 2025-09-14 14:06 | DVHINCON2 ---
Date of service: Sep 14, 2025 Referring Physician DANIEL Smiley Reason for Consultation MICHELLE on Chronic kidney disease History of Present Illness 69-year-old patient with significant history chronic kidney disease stage 4, hypertension, CHF, history of CVA, history of aortic valve replacement in 2003 on warfarin, diabetes type 2 who presents to the hospital because of worsening shortness of breath on exertion, orthopnea PND with minimal leg swelling for the last three days associated with generalized weakness for which he called 911 for assistance, he denies nausea vomiting diarrhea chest pain. He endorses generalized malaise and no new change in medications except for a tooth extraction He has been taking his furosemide 40 mg twice a day without improvement of his symptoms and he denies eating salty food or excessive fluid intake for the last 3-4 days. Laboratory data reviewed GFR of 19. Chest x-ray shows cardiomegaly with pulmonary vascular congestion. Past Medical History Diabetes type 2, CHF, hypertension Past Surgical History Denied Allergies: Coded Allergies: Iodine (Unverified Allergy, Unknown, 05/31/25) Current Medications Current Medications Medications (Trade) Dose Ordered Sig/Alexandrea Route PRN Reason Start Time Stop Time Status Last Admin Furosemide (Lasix Injection) 40 mg BIDD IV 09/14/25 06:00 09/14/25 06:00 Atorvastatin Calcium (Lipitor) 80 mg HS PO 09/14/25 22:00 Metoprolol Tartrate (Lopressor Tablet) 50 mg BID PO 09/14/25 10:00 09/14/25 10:07 Sacubitril/ Valsartan (Entresto 24-26 Mg tab) 1 tab BID PO 09/14/25 10:00 09/14/25 10:07 Sodium Bicarbonate 650 mg TID PO 09/14/25 06:00 09/14/25 06:00 Albuterol (Ventolin Medneb) 2.5 mg Q6HPRN PRN NEB SHORTNESS OF BREATH 09/13/25 22:45 09/14/25 04:49 Diagnostic Test (Pha) (Accu-Chek Comfort Curve T) 1 strip Q6HR 09/14/25 00:00 09/14/25 12:13 Insulin Human Regular (InsuLIN R) Q6HR SC 09/14/25 00:00 09/14/25 12:17 Dextrose 50 ml UD PRN IV Blood Sugar LESS THAN 60 09/13/25 22:45 Ondansetron HCl (Zofran) 4 mg Q4HP PRN IV NAUSEA / VOMITING 09/13/25 22:45 Acetaminophen (Tylenol Tablet) 650 mg Q6HP PRN PO PAIN SCALE 1-3 OR TEMP>100.4 09/13/25 22:45 Nitroglycerin (Ntrostat Sublingual) 0.4 mg Q5MINP PRN SL FOR CHEST PAIN 09/13/25 22:45 Morphine Sulfate 2 mg Q30M PRN IV FOR CHEST PAIN 09/13/25 22:45 Warfarin Sodium (Coumadin Per Rx Protocol) RX PROTOCOL PER PHARMACY PO 09/14/25 01:00 Ipratropium [place] (Atrovent Medneb) 0.5 mg Q6HR NEB 09/14/25 12:00 Ceftriaxone Sodium 50 ml @ 100 mls/hr DAILY@09 IV 09/14/25 09:00 09/14/25 09:04 Doxycycline Monohydrate (Vibramycin Tablet) 100 mg Q12HR PO 09/14/25 10:00 09/14/25 10:08 Tramadol HCl (Ultram) 50 mg Q6HP PRN PO MODERATE PAIN (4-6 PAIN SCALE) 09/14/25 14:00 UNV Family History Hypertension in the family Social History Denies smoking alcohol or drug abuse Review of Systems HEENT: Oral mucosa dry Neck no JVD Cardiovascular: Denies for chest pain denies Positive orthopnea or PND Respiratory: Denies cough or Positive for shortness of breath Gastrointestinal: Denies for nausea vomiting Musculoskeletal: Denies myalgias Neurological: Denies focal weakness Dermatological: Denies any rash The rest of the review of systems were reviewed pertinent positives and pertinent negatives are as per HPI up to 12 points review of systems H&P Exam Vital Signs/I&O Vital Sign Date Time Temp Pulse Resp B/P (MAP) Pulse Ox O2 Delivery O2 Flow Rate FiO2 09/14/25 12:12 97.8 85 18 136/89 (105) 98 97.8 09/14/25 07:30 Nasal Cannula* 2 28 Physical Exam HEENT: No evidence of JVD, no oral ulcers. Pulmonary: Diminished on auscultation bilaterally Cardiovascular S1-S2, no S3 or S4 Abdomen: Bowel sounds positive, soft no rebound tenderness Skin: No rash Neurological: Alert, oriented, no focal weakness Labs/Diagnostic Data Labs/Diagnostic Data Laboratory Tests Test 09/14/25 12:12 09/14/25 11:06 09/14/25 10:44 09/14/25 08:50 Range/Units POC Glucose 158 H 70-106 mg/dl Prothrombin Time 20.4 H 9.3-11.8 sec Prothrombin Time INR 2.07 H 0.9-1.15 Activated Partial Thromboplast Time 32.3 24.5-34.5 SEC Phosphorus Level 4.6 2.4-5.1 mg/dL Magnesium Level 2.0 1.6-2.6 mg/dL Vitamin B12 Level 417 211-911 pg/mL Vitamin D 25-Hydroxy 39.8 30.0-100 ng/mL Parathyroid Hormone (Intact) 204.8 H 18.4-80.1 pg/mL Test 09/14/25 06:53 09/14/25 06:32 09/13/25 22:45 09/13/25 20:48 Range/Units POC Glucose 195 H 70-106 mg/dl White Blood Count 8.2 # 4.4-10.8 10^3/uL Red Blood Count 3.82 L 4.5-5.90 10^6/uL Hemoglobin 10.6 L 13.5-17.5 g/dL Hematocrit 33.4 L 41.0-53.0 % Mean Corpuscular Volume 87.5 80.0-100.0 fL Mean Corpuscular Hemoglobin 27.8 L 28.0-32.0 pg Mean Corpuscular Hemoglobin Concent 31.7 L 32.0-36.0 g/dL Red Cell Distribution Width 16.5 H 11.8-14.3 % Platelet Count 153 140-450 10^3/uL Mean Platelet Volume 8.2 6.9-10.8 fL Neutrophils (%) (Auto) 97.1 H 37.0-80.0 % Lymphocytes (%) (Auto) 1.8 L 10.0-50.0 % Monocytes (%) (Auto) 0.8 0.0-12.0 % Eosinophils (%) (Auto) 0.1 0.0-7.0 % Basophils (%) (Auto) 0.2 0.0-2.0 % Neutrophils # (Auto) 8.0 1.6-8.6 10 ^3/uL Lymphocytes # (Auto) 0.1 L 0.4-5.4 10 ^3/uL Monocytes # (Auto) 0.1 0-1.3 10 ^3/uL Eosinophils # (Auto) 0 0-0.8 10 ^3/uL Basophils # (Auto) 0 0-0.2 10 ^3/uL Nucleated Red Blood Cells 0.1 % Sodium Level 143 136-145 mmol/L Potassium Level 4.6 3.5-5.1 mmol/L Chloride Level 108 H 98-107 mmol/L Carbon Dioxide Level 20 20-31 mmol/L Anion Gap 15 5-15 Blood Urea Nitrogen 50 H 9-23 mg/dL Creatinine 3.33 H 0.700-1.30 mg/dL Glomerular Filtration Rate Calc 19 >90 mL/min BUN/Creatinine Ratio 15.0 10.0-20.0 Serum Glucose 224 #H 74-106 mg/dL Hemoglobin A1c 5.6 <5.7 % A1C Calcium Level 8.8 8.7-10.4 mg/dL Thyroid Stimulating Hormone (TSH) 1.20 0.55-4.78 uIU/mL D-Dimer, Quantitative 0.84 H 0.0-0.49 mg/L FEU Troponin I High Sensitivity 64 *H 69 *H </=54 ng/L Test 09/13/25 19:40 09/13/25 05:20 Range/Units White Blood Count 11.4 H 4.4-10.8 10^3/uL Red Blood Count 4.10 L 4.5-5.90 10^6/uL Hemoglobin 11.4 L 13.5-17.5 g/dL Hematocrit 35.1 L 41.0-53.0 % Mean Corpuscular Volume 85.6 80.0-100.0 fL Mean Corpuscular Hemoglobin 27.9 L 28.0-32.0 pg Mean Corpuscular Hemoglobin Concent 32.6 32.0-36.0 g/dL Red Cell Distribution Width 16.9 H 11.8-14.3 % Platelet Count 204 140-450 10^3/uL Mean Platelet Volume 8.1 6.9-10.8 fL Neutrophils (%) (Auto) 80.3 H 37.0-80.0 % Lymphocytes (%) (Auto) 12.0 10.0-50.0 % Monocytes (%) (Auto) 6.4 0.0-12.0 % Eosinophils (%) (Auto) 0.5 0.0-7.0 % Basophils (%) (Auto) 0.8 0.0-2.0 % Neutrophils # (Auto) 9.2 H 1.6-8.6 10 ^3/uL Lymphocytes # (Auto) 1.4 0.4-5.4 10 ^3/uL Monocytes # (Auto) 0.7 0-1.3 10 ^3/uL Eosinophils # (Auto) 0.1 0-0.8 10 ^3/uL Basophils # (Auto) 0.1 0-0.2 10 ^3/uL Nucleated Red Blood Cells 0.1 % Prothrombin Time 14.0 H 9.3-11.8 sec Prothrombin Time INR 1.36 H 0.9-1.15 Activated Partial Thromboplast Time 31.9 24.5-34.5 SEC Sodium Level 143 136-145 mmol/L Potassium Level 4.7 3.5-5.1 mmol/L Chloride Level 109 H 98-107 mmol/L Carbon Dioxide Level 21 20-31 mmol/L Anion Gap 13 5-15 Blood Urea Nitrogen 52 H 9-23 mg/dL Creatinine 3.22 H 0.700-1.30 mg/dL Glomerular Filtration Rate Calc 20 >90 mL/min BUN/Creatinine Ratio 16.1 10.0-20.0 Serum Glucose 99 74-106 mg/dL Lactic Acid Level 1.2 0.4-2.0 mmol/L Calcium Level 9.0 8.7-10.4 mg/dL Total Bilirubin 0.9 0.2-1.0 mg/dL Aspartate Amino Transferase (AST) 108 H 13-40 U/L Alanine Aminotransferase (ALT) 124 H 7-40 U/L Alkaline Phosphatase 125 H 46-116 U/L Troponin I High Sensitivity 64 *H </=54 ng/L B-Type Natriuretic Peptide 1913.25 0-100 pg/mL Total Protein 6.5 5.7-8.2 g/dL Albumin 4.0 3.2-4.8 g/dL Urine Color Colorless Yellow Urine Clarity Clear Clear Urine pH 5.0 5.0-9.0 Urine Specific [place] 1.008 1.001-1.035 Urine Protein 1+ H Negative Urine Ketones Negative Negative Urine Blood Trace H Negative /uL Urine Nitrite Negative Negative Urine Bilirubin Negative Negative Urine Urobilinogen Normal Negative mg/dL Urine Leukocyte Esterase Negative Negative /uL Urine RBC None seen 0 - 3 /hpf Urine Microscopic WBC < 1 0-3 /HPF Urine Squamous Epithelial Cells None seen <5 /hpf Urine Bacteria None seen None Seen /hpf Urine Glucose Trace Normal mg/dL Chest x-ray show pulmonary vascular congestion Assessment Assessment: Acute kidney injury on Chronic kidney disease four. Likely secondary to cardiorenal syndrome NSTEMI Nonischemic cardiomyopathy Severe aortic stenosis status post mechanical valve replacement Moderate to severe mitral regurgitation Acute hypoxic respiratory failure secondary to pneumonia Pneumonia Pulmonary hypertension Anemia likely chronic kidney disease Secondary hyperparathyroidism Hypertension Hyperlipidemia History of CVA Obesity Plan/Recommendation Continue with furosemide IV 40 mg twice a day, strict urinary output measurement, fluid restriction less than 1 L per day, Cardiology consult appreciated No indication for your previous diet with Antibiotics as per primary team Warfarin as per pharmacy recommendations Thank you very much Plan discussed with: Patient HARVEY MALAVE MD Sep 14, 2025 14:06
[2025-09-14 14:33] LABS: COVID19 ANTIGEN SOFIA FIA NEGATIVE (NEGATIVE)
--- NOTE | 2025-09-14 16:51 | DVHINCON2 ---
Date of service: Sep 14, 2025 Referring Physician Baljit SANCHEZ Reason for Consultation CHF History of Present Illness This is a 69-year-old male with a PMH of diabetes mellitus type 2 on insulin for the past 5 years, heart failure with reduced ejection fraction-EF 30%, COPD on 2 L home oxygen, history of CVA, asthma, aortic valve replacement 2004 on warfarin, CKD stage 4 who presented to the ED with a complaint of shortness of breath for the past 3 days. Patient had a recent dental extraction on 09/11, following which he started to feel fevers and chills, associated with shortness of breaths and productive cough with greenish brown phlegm. Patient increased his oxygen requirement from 2 L to 3 L which did not improve his condition. He reports compliance to Lasix, he takes 40 mg in the day, 20 mg in the night. Patient reports generalized weakness. Transthoracic echocardiogram from 05/12/2025 reveals an EF of 30% with moderate to severe mitral insufficiency and moderate tricuspid regurgitation. Chest x-ray shows cardiomegaly with findings suggestive of congestive heart failure, underlying infectious process can not be excluded. Patient was admitted to the hospital. I am asked to consult on this patient. Allergies: Coded Allergies: Iodine (Unverified Allergy, Unknown, 05/31/25) Current Medications Current Medications Medications (Trade) Dose Ordered Sig/Alexandrea Route PRN Reason Start Time Stop Time Status Last Admin Furosemide (Lasix Injection) 40 mg BIDD IV 09/14/25 06:00 09/14/25 06:00 Atorvastatin Calcium (Lipitor) 80 mg HS PO 09/14/25 22:00 Metoprolol Tartrate (Lopressor Tablet) 50 mg BID PO 09/14/25 10:00 09/14/25 10:07 Sacubitril/ Valsartan (Entresto 24-26 Mg tab) 1 tab BID PO 09/14/25 10:00 09/14/25 10:07 Sodium Bicarbonate 650 mg TID PO 09/14/25 06:00 09/14/25 06:00 Albuterol (Ventolin Medneb) 2.5 mg Q6HPRN PRN NEB SHORTNESS OF BREATH 09/13/25 22:45 09/14/25 04:49 Diagnostic Test (Pha) (Accu-Chek Comfort Curve T) 1 strip Q6HR 09/14/25 00:00 09/14/25 12:13 Insulin Human Regular (InsuLIN R) Q6HR SC 09/14/25 00:00 09/14/25 12:17 Dextrose 50 ml UD PRN IV Blood Sugar LESS THAN 60 09/13/25 22:45 Ondansetron HCl (Zofran) 4 mg Q4HP PRN IV NAUSEA / VOMITING 09/13/25 22:45 Acetaminophen (Tylenol Tablet) 650 mg Q6HP PRN PO PAIN SCALE 1-3 OR TEMP>100.4 09/13/25 22:45 Nitroglycerin (Ntrostat Sublingual) 0.4 mg Q5MINP PRN SL FOR CHEST PAIN 09/13/25 22:45 Morphine Sulfate 2 mg Q30M PRN IV FOR CHEST PAIN 09/13/25 22:45 Warfarin Sodium (Coumadin Per Rx Protocol) RX PROTOCOL PER PHARMACY PO 09/14/25 01:00 Ipratropium [place] (Atrovent Medneb) 0.5 mg Q6HR NEB 09/14/25 12:00 Ceftriaxone Sodium 50 ml @ 100 mls/hr DAILY@09 IV 09/14/25 09:00 09/14/25 09:04 Doxycycline Monohydrate (Vibramycin Tablet) 100 mg Q12HR PO 09/14/25 10:00 09/14/25 10:08 Review of Systems Constitutional: reports: weakness; denies: chills, diaphoresis, fatigue, fever, malaise, sweats, others EENTM: denies: blurred vision, double vision, ear bleeding, ear discharge, ear drainage, ear pain, ear ringing, eye pain, eye redness, hearing loss, mouth pain, mouth swelling, nasal discharge, nose bleeding, nose congestion, nose pain, photophobia, tearing, throat pain, throat swelling, voice changes, others Respiratory: reports: shortness of breath; denies: cough, hemoptysis, orthopnea, SOB at rest, SOB with excertion, stridor, wheezing, others Cardiovascular: denies: chest pain, dizzy spells, diaphoresis, Dyspnea on exertion, edema, irregular heart beat, left arm pain, lightheadedness, palpitations, PND, syncope, others Gastrointestinal: denies: abdomen distended, abdominal pain, blood streaked bowels, constipated, diarrhea, dysphagia, difficulty swallowing, hematemesis, melena, nausea, poor appetite, poor fluid intake, rectal bleeding, rectal pain, vomiting, others Genitourinary: denies: burning, dysuria, flank pain, frequency, hematuria, incontinence, penile discharge, penile sore, pain, testicle pain, testicle swelling, urgency, others Neurological: denies: dizziness, fainting, headache, left sided numbness, left sided weakness, numbness, paresthesia, pre-existing deficit, right sided numbness, right sided weakness, seizure, speech problems, tingling, tremors, weakness, others Musculoskeletal: denies: back pain, gout, joint pain, joint swelling, muscle pain, muscle stiffness, neck pain, others Integumetry: denies: bruises, change in color, change in hair/nails, dryness, laceration, lesions, lumps, rash, wounds, others Allergic/Immunocompromised: denies: Difficulty Healing, Frequent Infections, Hives, Itching, others Hematologic/Lymphatic: denies: anemia, blood clots, easy bleeding, easy bruising, swollen glands, others Endocrine: denies: excessive hunger, excessive sweating, excessive thirst, excessive urination, flushing, intolerance to cold, intolerance to heat, unexplained weight gain, unexplained weight loss, others Psychiatric: denies: anxiety, bipolar disorder, depression, hopeless, panic disorder, schizophrenia, sleepless, suicidal, others All Other Systems: Reviewed and Negative Vital Signs Vital Signs Date Time Temp Pulse Resp B/P (MAP) Pulse Ox O2 Delivery O2 Flow Rate FiO2 09/14/25 12:12 97.8 85 18 136/89 (105) 98 97.8 09/14/25 07:30 Nasal Cannula* 2 28 Physical Exam GENERAL: Alert and oriented x 3. No acute distress. Obese. EYES: PERRL, EOMI. Anicteric. HENT: Moist mucous membranes. LUNGS: Decreased breath sounds. CARDIOVASCULAR: Regular rate and rhythm. ABDOMEN: Soft, nontender and nondistended. Bruising seen on lower abdomen. EXTREMITIES: No edema. NEUROLOGIC: No focal neurological deficits. SKIN: Warm, dry. Labs/Diagnostic Data Labs Test 09/14/25 12:12 09/14/25 11:06 09/14/25 10:44 09/14/25 08:50 Range/Units POC Glucose 158 H 70-106 mg/dl Prothrombin Time 20.4 H 9.3-11.8 sec Prothrombin Time INR 2.07 H 0.9-1.15 Activated Partial Thromboplast Time 32.3 24.5-34.5 SEC Phosphorus Level 4.6 2.4-5.1 mg/dL Magnesium Level 2.0 1.6-2.6 mg/dL Vitamin B12 Level 417 211-911 pg/mL Vitamin D 25-Hydroxy 39.8 30.0-100 ng/mL Parathyroid Hormone (Intact) 204.8 H 18.4-80.1 pg/mL Test 09/14/25 06:32 09/13/25 22:45 09/13/25 19:40 09/13/25 05:20 Range/Units White Blood Count 8.2 # 4.4-10.8 10^3/uL Red Blood Count 3.82 L 4.5-5.90 10^6/uL Hemoglobin 10.6 L 13.5-17.5 g/dL Hematocrit 33.4 L 41.0-53.0 % Mean Corpuscular Volume 87.5 80.0-100.0 fL Mean Corpuscular Hemoglobin 27.8 L 28.0-32.0 pg Mean Corpuscular Hemoglobin Concent 31.7 L 32.0-36.0 g/dL Red Cell Distribution Width 16.5 H 11.8-14.3 % Platelet Count 153 140-450 10^3/uL Mean Platelet Volume 8.2 6.9-10.8 fL Neutrophils (%) (Auto) 97.1 H 37.0-80.0 % Lymphocytes (%) (Auto) 1.8 L 10.0-50.0 % Monocytes (%) (Auto) 0.8 0.0-12.0 % Eosinophils (%) (Auto) 0.1 0.0-7.0 % Basophils (%) (Auto) 0.2 0.0-2.0 % Neutrophils # (Auto) 8.0 1.6-8.6 10 ^3/uL Lymphocytes # (Auto) 0.1 L 0.4-5.4 10 ^3/uL Monocytes # (Auto) 0.1 0-1.3 10 ^3/uL Eosinophils # (Auto) 0 0-0.8 10 ^3/uL Basophils # (Auto) 0 0-0.2 10 ^3/uL Nucleated Red Blood Cells 0.1 % Sodium Level 143 136-145 mmol/L Potassium Level 4.6 3.5-5.1 mmol/L Chloride Level 108 H 98-107 mmol/L Carbon Dioxide Level 20 20-31 mmol/L Anion Gap 15 5-15 Blood Urea Nitrogen 50 H 9-23 mg/dL Creatinine 3.33 H 0.700-1.30 mg/dL Glomerular Filtration Rate Calc 19 >90 mL/min BUN/Creatinine Ratio 15.0 10.0-20.0 Serum Glucose 224 #H 74-106 mg/dL Hemoglobin A1c 5.6 <5.7 % A1C Calcium Level 8.8 8.7-10.4 mg/dL Thyroid Stimulating Hormone (TSH) 1.20 0.55-4.78 uIU/mL D-Dimer, Quantitative 0.84 H 0.0-0.49 mg/L FEU Troponin I High Sensitivity 64 *H </=54 ng/L Lactic Acid Level 1.2 0.4-2.0 mmol/L Total Bilirubin 0.9 0.2-1.0 mg/dL Aspartate Amino Transferase (AST) 108 H 13-40 U/L Alanine Aminotransferase (ALT) 124 H 7-40 U/L Alkaline Phosphatase 125 H 46-116 U/L B-Type Natriuretic Peptide 1913.25 0-100 pg/mL Total Protein 6.5 5.7-8.2 g/dL Albumin 4.0 3.2-4.8 g/dL Urine Color Colorless Yellow Urine Clarity Clear Clear Urine pH 5.0 5.0-9.0 Urine Specific [place] 1.008 1.001-1.035 Urine Protein 1+ H Negative Urine Ketones Negative Negative Urine Blood Trace H Negative /uL Urine Nitrite Negative Negative Urine Bilirubin Negative Negative Urine Urobilinogen Normal Negative mg/dL Urine Leukocyte Esterase Negative Negative /uL Urine RBC None seen 0 - 3 /hpf Urine Microscopic WBC < 1 0-3 /HPF Urine Squamous Epithelial Cells None seen <5 /hpf Urine Bacteria None seen None Seen /hpf Urine Glucose Trace Normal mg/dL Assessment Acute on chronic decompensated HFrEF, NYHA class III. NTSEMI, type II secondary to above. Nonischemic cardiomyopathy. Severe aortic stenosis status post open-heart with mechanical valve replacement (on warfarin therapy). Mitral valve/tricuspid valve regurgitation, moderate to severe degree. Acute hypoxic respiratory failure secondary to pneumonia. Acute kidney injury likely superimposed on CKD stage 4 in the setting of pneumonia. Pulmonary hypertension. Anemia likely chronic kidney disease. Secondary hyperparathyroidism. Hypertension. Hyperlipidemia. History of CVA. Obesity. Plan/Recommendation I agree with your ongoing assessment and care of plan. Patient has been seen by Jaylon Mcgee Resident on my behalf, we have discussed the plan with the patient. Continue preload and afterload reduction as tolerated by patient blood pressures and renal function. Continue diuresis with Lasix 40 mg IV b.i.d. Continue GDMT for HFrEF as renal function permits, avoid nephrotoxic agents. Maintain Coumadin levels at therapeutic range for an INR in between 2-3. Continue lipid lowering agent. Strict I&Os, cardiac diet, fluid restriction. If the patient is unable to tolerate aggressive preload and afterload reduction, and remains symptomatic, consider transfer to higher level of care for mitral clip evaluation. Nephrology consult and recommendations pending. Additional plan as per the hospital course. Plan discussed with: Patient STEVE WARREN MD Sep 14, 2025 13:46
[2025-09-14] MEDS: WARFARIN SODIUM 1 MG TAB PO ONE (17:51)
--- NOTE | 2025-09-14 18:06 | DVHPNRES ---
Progress Note Date Seen: Sep 14, 2025 Resident Creating Document: DRAGAN BEATTY RESIDENT Medical Necessity Reason Pt with a Central, PICC or Fol: No Subjective Review of Systems Flex Arguello is a 69-year old male with past medical history of CVA with residual left-sided weakness, diabetes mellitus on insulin, HFrEF 30%, COPD on 2 L home oxygen, asthma, aortic valve replacement in 2003 on warfarin, CKD stage 4, hypertension,[place] who presented to the ED with the chief complaint of shortness of breath since 3 days. Patient had a recent dental extraction on 09/11/2025, after which he started developing fever and chills along with shortness of breath and productive cough with yellowish brown phlegm. The patient increased his home oxygen from 2-3 L, it did not relieve his shortness of breath. Patient mentions he has a recent history of recurrent pneumonias. Past medical history: CVA with residual left-sided weakness, diabetes mellitus on insulin, HFrEF 30%, COPD on 2 L home oxygen, asthma, aortic valve replacement in 2003 on warfarin, CKD stage 4, hypertension, 3 NC with no stent placement Past surgical history: Aortic valve replacement in 2003 Social & Personal history: lives with caregiver Smoking: Denies Alcohol: Denies Drugs: Denies Allergies: Iodine Patient seen and examined at bedside. Patient is alert and oriented to time, place person and responding to all questions. Eyes: No Pain, No Vision change, No Conjunctivae inflammation, No Eyelid inflammation, No Redness ENT: No Ear pain, No Ear discharge, No Nose pain, No Nose discharge, No Nose congestion, No Mouth pain, No Mouth swelling, No Throat pain, No Throat swelling Cardiovascular: No Chest Pain, No Palpitations, No Orthopnea, No Paroxysmal No Dyspnea, No Edema, No Lt Headedness Respiratory: Cough with sputum, No Dry, Shortness of breath, No SOB with exertion, No Wheezing, No Hemoptysis, No Pleuritic Pain, Gastrointestinal: No Nausea, No Vomiting, No Abdominal Pain, No Diarrhea, No Constipation, No Melena, No Hematochezia Genitourinary: No Dysuria, No Frequency, No Incontinence, No Hematuria, No Retention Objective vital signs Vital Sign Date Time Temp Pulse Resp B/P (MAP) Pulse Ox O2 Delivery O2 Flow Rate FiO2 09/14/25 17:07 94 Nasal Cannula* 2 28 09/14/25 13:30 80 16 09/14/25 12:12 97.8 136/89 (105) 97.8 medications Current Medications Medications Dose Ordered Sig/Alexandrea Route Start Time Stop Time Status Last Admin Dose Admin Furosemide 40 mg BIDD IV 09/14/25 06:00 09/14/25 06:00 40 MG Atorvastatin Calcium 80 mg HS PO 09/14/25 22:00 Metoprolol Tartrate 50 mg BID PO 09/14/25 10:00 09/14/25 10:07 50 MG Sacubitril/ Valsartan 1 tab BID PO 09/14/25 10:00 09/14/25 10:07 1 TAB Sodium Bicarbonate 650 mg TID PO 09/14/25 06:00 09/14/25 14:11 650 MG Albuterol 2.5 mg Q6HPRN PRN NEB 09/13/25 22:45 09/14/25 14:00 2.5 MG Diagnostic Test (Pha) 1 strip Q6HR 09/14/25 00:00 09/14/25 12:13 1 STRIP Insulin Human Regular Q6HR SC 09/14/25 00:00 09/14/25 12:17 2 UNITS Dextrose 50 ml UD PRN IV 09/13/25 22:45 Ondansetron HCl 4 mg Q4HP PRN IV 09/13/25 22:45 Acetaminophen 650 mg Q6HP PRN PO 09/13/25 22:45 Nitroglycerin 0.4 mg Q5MINP PRN SL 09/13/25 22:45 Morphine Sulfate 2 mg Q30M PRN IV 09/13/25 22:45 Warfarin Sodium RX PROTOCOL PER PHARMACY PO 09/14/25 01:00 Ipratropium [place] 0.5 mg Q6HR NEB 09/14/25 12:00 09/14/25 14:00 0.5 MG Ceftriaxone Sodium 50 ml @ 100 mls/hr DAILY@09 IV 09/14/25 09:00 09/14/25 09:04 100 MLS/HR Doxycycline Monohydrate 100 mg Q12HR PO 09/14/25 10:00 09/14/25 10:08 100 MG Tramadol HCl 50 mg Q6HP PRN PO 09/14/25 14:00 09/14/25 15:12 50 MG Examination General Appearance: Cooperative. Well developed. Well nourished. NAD. Patient currently on 2L oxygen. Head Exam: Normal inspection Neck Exam: Normal inspection. Non-tender. Normal alignment Pulmonary/Respiratory: Chest non-tender. B/L rales, no crackles, no wheezing. Cardiovascular/Chest: Regular rate and rhythm. No murmurs. No JVD. Peripheral Pulses: 2+ Radial (R). 2+ Radial (L). 2+ Pedal (R). 2+ Pedal (L) Abdominal Exam: Normal bowel sounds. Soft. normal abdomen, no visible veins, Nontender. No hepatospenomegaly. No masses Ankle Exam: Negative ankle edema Lower extremities: Negative lower extremity edema Neuro/Mental Status: A&O x4. Coherent., strength 5/5 in right extremities, 3/5 in left upper extremity, 2/5 in left lower extremity Thoughts/Psych: Normal thought pattern. Appropriate mood and affect. Good judgement and insight Skin Exam: Normal inspection. Normal color. Warm. Dry laboratory and microbiology Laboratory Tests 09/14/25 06:32 Test 09/14/25 06:32 Range/Units Serum Glucose 224 #H 74-106 mg/dL Labs and/or images reviewed: Labs reviewed by me, Image(s) reviewed by me Problem List/Assessment/Plan Problem List/Assessment/Plan # Acute on chronic decompensated HFrEF 30% # NSTEMI, likely type 2, secondary to above # Nonischemic cardiomyopathy. # Hypertensive heart disease # Severe aortic stenosis status post open-heart with mechanical valve replacement (on warfarin therapy) since 20 years # Mitral valve/tricuspid valve regurgitation, moderate to severe degree. # Pulmonary hypertension # Secondary hypercoagulable state -PT 20.4, INR 2.07 and APTT 32.3, Ddimer 0.84 -cardiology consult- Continue preload and afterload reduction, diuresis with Lasix 40 mg IV b.i.d., GDMT for her HFrEF -Echo LVEF40%, severe MR, moderate MS, severe TR, trivial to small pericardial effusion -continue warfarin per pharmacy -lasix 40mg bid iv -continue metoprolol 50mg bid po -continue entresto 1tab po bid #Acute hypoxic respiratory failure secondary to pneumonia. # Acute pneumonia, likely bacterial -CXR- Cardiomegaly with findings suggestive of congestive heart failure -iv ceftriaxone 1gm iv daily -doxycycline 100mg q12hr po -mednebs with ipratropium 0.5mg q6hr and albuterol 2.5 mg q6hr prn # Acute kidney injury, likely superimposed on CKD stage 4 -Renal US-Increased bilateral echogenicity -avoid nephrotoxic agents -monitor BNP -Nephrology consult-Continue with furosemide IV 40 mg twice a day, strict urinary output measurement, fluid restriction less than 1 L per day -sodium bicarbonate 650mg tid po # Anemia, likely of chronic kidney disease # Secondary hyperparathyroidism # Diabetes mellius, type 2 with hyperglycemia -HbA1c is 5.6 -mild insulin sliding scale # Transamnitis # Hyperlipidemia. -continue lipitor 80 mg hs po # History of CVA # Obesity. -patient counseled about healthy lifestyle modifications and dietary changes DVT prophylaxis: patient on warfarin Goals of care: Full code, discussed for >23 minutes Plan discussed with patient Plan discussed with Dr Beck Plan discussed with: Patient Date of Service: Sep 14, 2025 Billing Provider: ELIZABETH BECK MD Common Visit Codes: [id number] INP/OBS CARE(HIGH) DRAGAN BEATTY RESIDENT Sep 14, 2025 18:06
[2025-09-14] MEDS: InsuLIN REG 1unit/0.01ml Soln (100units/ml) ONE (18:58)
[2025-09-14] MEDS: ATORVASTATIN 20 MG TAB PO SCH (22:33)
[2025-09-14] MEDS: ACETAMINOPHEN 325 MG TAB PO PRN (22:34)
[2025-09-15] VITALS (11 sets, daily range): BP systolic 97–133; BP diastolic 69–86; PULSE 73–84; RESP 16–18; TEMP 96.5–97.9; O2SAT 92–100
[2025-09-15 06:48] LABS: Hematocrit 34.4 % (41.0-53.0); Hemoglobin 11.4 g/dL (13.5-17.5); Mean Corpuscular Hemoglobin 28.2 pg (28.0-32.0); Mean Corpuscular Volume 85.1 fL (80.0-100.0); Nucleated Red Blood Cells % 0.1 %
[2025-09-15 07:02] LABS: Calcium 8.8 mg/dL (8.7-10.4); Chloride 103 mmol/L (98-107); Potassium 4.2 mmol/L (3.5-5.1); Sodium 142 mmol/L (136-145)
[2025-09-15 07:03] LABS: Anion Gap 15 (5-15); Carbon Dioxide 24 mmol/L (20-31)
[2025-09-15 07:08] LABS: BUN/Creatinine Ratio 18.3 (10.0-20.0); Glucose 92 mg/dL (74-106)
[2025-09-15 07:10] LABS: Blood Urea Nitrogen 55 mg/dL (9-23)
[2025-09-15 07:18] LABS: INR 2.8 (0.9-1.15); Partial Thromboplastin Time 32.0 SEC (24.5-34.5); Prothrombin Time 26.8 sec (9.3-11.8)
[2025-09-15] MEDS: HYDROcodone-ACET 5/325MG TAB PO PRN (10:58)
--- NOTE | 2025-09-15 11:15 | DVHPN2 ---
Progress Note Date Seen: Sep 15, 2025 Resident Creating Document: PAULINO OWENS RESIDENT Medical Necessity Reason Pt with a Central, PICC or Fol: No Subjective Review of Systems This is a 69-year-old male with diabetes mellitus type 2 on insulin for the past 5 years, heart failure with reduced ejection fraction-EF 30%, COPD on 2 L home oxygen, history of CVA, asthma, aortic valve replacement 2003 on warfarin, CKD stage 4 who presented to the ER with a chief complaint of shortness of breaths for the past 3 days. Patient had dental extraction on 09/11, following which he started to feel fevers and chills, associated with shortness of breaths and productive cough. With greenish brown phlegm patient increased his oxygen requirement from 2 L to 3 L which did not improve his condition. He reports compliance to Lasix, he takes 40 mg in the day, 20 mg in the night. Patient reports generalized weakness. Transthoracic echocardiogram from 05/12/2025 reveals an EF of 30% with moderate to severe mitral insufficiency and moderate tricuspid regurgitation. Past MedicalSurgical History: Diabetes Mellitus type 2, HFrEF 30%, COPD with home oxygen 2L, CVA, asthma, CKD stage 4,aortic valve replacement 2003 on warfarin Past Social History: The patient lives at home, smokes 3 cigarettes per day, denies alcohol or illicit drugs abuse. Home medication: Warfarin, Entresto, Lasix 20 mg b.i.d., hydralazine TDS, metoprolol, isosorbide dinitrate, dapagliflozin Patient seen and examined, reports feeling the same. Reports chronic back pain, which is worsening. Objective vital signs Vital Sign Date Time Temp Pulse Resp B/P (MAP) Pulse Ox O2 Delivery O2 Flow Rate FiO2 09/15/25 09:14 78 118/79 09/15/25 09:00 97.0 16 93 97.0 09/15/25 06:12 Nasal Cannula 2.0 09/15/25 06:12 28 Total Intake and Output 09/14/25 09/14/25 09/15/25 15:00 23:00 07:00 Intake Total 50 ml 500 ml Balance 50 ml 500 ml medications Current Medications Medications Dose Ordered Sig/Alexandrea Route Start Time Stop Time Status Last Admin Dose Admin Atorvastatin Calcium 80 mg HS PO 09/14/25 22:00 09/14/25 22:33 80 MG Metoprolol Tartrate 50 mg BID PO 09/14/25 10:00 09/15/25 09:14 50 MG Sacubitril/ Valsartan 1 tab BID PO 09/14/25 10:00 09/15/25 09:13 1 TAB Sodium Bicarbonate 650 mg TID PO 09/14/25 06:00 09/15/25 05:55 650 MG Albuterol 2.5 mg Q6HPRN PRN NEB 09/13/25 22:45 09/14/25 23:08 2.5 MG Diagnostic Test (Pha) 1 strip Q6HR 09/14/25 00:00 09/15/25 05:55 1 STRIP Insulin Human Regular Q6HR SC 09/14/25 00:00 09/15/25 00:56 3 UNITS Dextrose 50 ml UD PRN IV 09/13/25 22:45 Ondansetron HCl 4 mg Q4HP PRN IV 09/13/25 22:45 Acetaminophen 650 mg Q6HP PRN PO 09/13/25 22:45 09/14/25 22:34 650 MG Nitroglycerin 0.4 mg Q5MINP PRN SL 09/13/25 22:45 Morphine Sulfate 2 mg Q30M PRN IV 09/13/25 22:45 Warfarin Sodium RX PROTOCOL PER PHARMACY PO 09/14/25 01:00 Ipratropium [place] 0.5 mg Q6HR NEB 09/14/25 12:00 09/14/25 23:08 0.5 MG Ceftriaxone Sodium 50 ml @ 100 mls/hr DAILY@09 IV 09/14/25 09:00 09/15/25 09:15 100 MLS/HR Doxycycline Monohydrate 100 mg Q12HR PO 09/14/25 10:00 09/15/25 09:14 100 MG Furosemide 20 mg DAILY IV 09/16/25 10:00 Acetaminophen/ Hydrocodone Bitart 1 tab Q6HPRN PRN PO 09/15/25 10:45 09/15/25 10:58 1 TAB Examination Overweight male patient lying in bed comfortably, no acute distress General: Overweight, palor, mucosae are moist Cardiovascular: Regular S1 and S2. No murmurs, gallops or rubs. No JVD elevation. No pedal edema Respiratory: Decreased breaths sounds and minimal coarse rales heard on auscultation, On NC 2 L saturating 93. Abdomen: Soft, nontender, nondistended, normoactive bowel sounds, no rebound tenderness, no organomegaly, no masses. Bruising seen on lower abdomen. Genitourinary: Deferred MSK/skin: Mobilizes 4 limbs. Skin is dry and warm Neurological: No motor, no sensitive deficits, normal speech. Pupils are isocoric and reactive. Psych/Mental Status: A/Ox3 laboratory and microbiology Laboratory Tests 09/15/25 05:33 Test 09/15/25 05:33 Range/Units Serum Glucose 92 # 74-106 mg/dL Labs and/or images reviewed: Labs reviewed by me, Image(s) reviewed by me Problem List/Assessment/Plan Problem List/Assessment/Plan Acute on chronic decompensated HFrEF, NYHA class III NTSEMI, type II secondary to above Nonischemic cardiomyopathy Severe aortic stenosis status post open-heart with mechanical valve replacement (on warfarin therapy) Mitral valve/tricuspid valve regurgitation, moderate to severe degree Acute hypoxic respiratory failure secondary to pneumonia Acute kidney injury likely superimposed on CKD stage 4 in the setting of pneumonia Pulmonary hypertension Anemia likely chronic kidney disease Secondary hyperparathyroidism Hypertension Hyperlipidemia History of CVA Obesity Plan/Recommendation Continue preload and afterload reduction as tolerated by patient blood pressures and renal function. Continue diuresis with Lasix as tolerated Continue GDMT for HFrEF as renal function permits, avoid nephrotoxic agents. Maintain Coumadin levels at therapeutic range for an INR in between 2-3. Continue lipid lowering agent. Strict I&Os, cardiac diet, fluid restriction If the patient is unable to tolerate aggressive preload and afterload reduction, and remains symptomatic, consider transfer to higher level of care for mitral clip evaluation. Nephrology recommendations appreciated We will sign off, please reconsult us if deemed necessary. Thank you for allowing us to care for this patient. Please call with any questions or concerns. Plan discussed with patient in which all questions have been answered Case discussed with Dr. Gutiérrez Plan discussed with: Patient My Orders My Orders Orders - PAULINO OWENS Procedure Category Date Status Time Maintain Fluid MAINE 09/14/25 In Process Restrictions 13:21 Visit Coding Cardiology RES Date of Service: Sep 15, 2025 Billing Provider: NICOLE CARD Sr., MD Cardiology Common Codes: [id number] HOSP CARE([facility] PAULINO OWENS RESIDENT Sep 15, 2025 11:15
[2025-09-15] MEDS: HYDROcodone-ACET 10/325MG TAB PO ONE (15:22)
--- NOTE | 2025-09-15 15:33 | DVHPN2 ---
Progress Note - Dictate Date Seen: Sep 15, 2025 Medical Necessity Reason Pt with a Central, PICC or Fol: No Subjective Continues to have shortness of breath cough vital signs Vital Sign Date Time Temp Pulse Resp B/P (MAP) Pulse Ox O2 Delivery O2 Flow Rate FiO2 09/15/25 13:00 96.9 73 18 106/76 (86) 100 96.9 09/15/25 11:22 Nasal Cannula* 2 28 Total Intake and Output 09/14/25 09/14/25 09/15/25 14:59 22:59 06:59 Intake Total 50 ml 500 ml Balance 50 ml 500 ml medications Current Medications Medications Dose Ordered Sig/Alexandrea Route Start Time Stop Time Status Last Admin Dose Admin Atorvastatin Calcium 80 mg HS PO 09/14/25 22:00 09/14/25 22:33 80 MG Metoprolol Tartrate 50 mg BID PO 09/14/25 10:00 09/15/25 09:14 50 MG Sacubitril/ Valsartan 1 tab BID PO 09/14/25 10:00 09/15/25 09:13 1 TAB Sodium Bicarbonate 650 mg TID PO 09/14/25 06:00 09/15/25 14:10 650 MG Albuterol 2.5 mg Q6HPRN PRN NEB 09/13/25 22:45 09/14/25 23:08 2.5 MG Diagnostic Test (Pha) 1 strip Q6HR 09/14/25 00:00 09/15/25 12:09 1 STRIP Insulin Human Regular Q6HR SC 09/14/25 00:00 09/15/25 00:56 3 UNITS Dextrose 50 ml UD PRN IV 09/13/25 22:45 Ondansetron HCl 4 mg Q4HP PRN IV 09/13/25 22:45 Acetaminophen 650 mg Q6HP PRN PO 09/13/25 22:45 09/14/25 22:34 650 MG Nitroglycerin 0.4 mg Q5MINP PRN SL 09/13/25 22:45 Morphine Sulfate 2 mg Q30M PRN IV 09/13/25 22:45 Warfarin Sodium RX PROTOCOL PER PHARMACY PO 09/14/25 01:00 Ipratropium [place] 0.5 mg Q6HR NEB 09/14/25 12:00 09/15/25 11:22 0.5 MG Ceftriaxone Sodium 50 ml @ 100 mls/hr DAILY@09 IV 09/14/25 09:00 09/15/25 09:15 100 MLS/HR Doxycycline Monohydrate 100 mg Q12HR PO 09/14/25 10:00 09/15/25 09:14 100 MG Furosemide 20 mg DAILY IV 09/16/25 10:00 Acetaminophen/ Hydrocodone Bitart 1 tab Q6HPRN PRN PO 09/15/25 10:45 09/15/25 10:58 1 TAB objective HEENT: No evidence of JVD, no oral ulcers. Pulmonary: Crackles at the lung bases bilaterally Cardiovascular S1-S2, no S3 or S4 Abdomen: Bowel sounds positive, soft no rebound tenderness Skin: No rash Neurological: Alert, oriented, no focal weakness laboratory and microbiology Laboratory Tests 09/15/25 05:33 Test 09/15/25 05:33 Range/Units Serum Glucose 92 # 74-106 mg/dL Assessment/Plan Assessment: Acute kidney injury on Chronic kidney disease four. Likely secondary to cardiorenal syndrome NSTEMI Nonischemic cardiomyopathy Severe aortic stenosis status post mechanical valve replacement Moderate to severe mitral regurgitation Acute hypoxic respiratory failure secondary to pneumonia Pneumonia Pulmonary hypertension Anemia likely chronic kidney disease Secondary hyperparathyroidism Hypertension Hyperlipidemia History of CVA Obesity Plan/Recommendation Continue with furosemide IV 40 mg twice a day, needs a strict urinary output measurement, fluid restriction less than 1 L per day, Cardiology consult appreciated Antibiotics as per primary team Warfarin as per pharmacy recommendations Thank you very much Plan discussed with: Patient HARVEY MALAVE MD Sep 15, 2025 15:33
--- NOTE | 2025-09-15 15:50 | DVHPNRES ---
Progress Note Date Seen: Sep 15, 2025 Resident Creating Document: DRAGAN BEATTY RESIDENT Medical Necessity Reason Pt with a Central, PICC or Fol: No Subjective Review of Systems Flex Arguello is a 69-year old male with past medical history of CVA with residual left-sided weakness, diabetes mellitus on insulin, HFrEF 30%, COPD on 2 L home oxygen, asthma, aortic valve replacement in 2003 on warfarin, CKD stage 4, hypertension,CA who presented to the ED with the chief complaint of shortness of breath since 3 days. Patient had a recent dental extraction on 09/11/2025, after which he started developing fever and chills along with shortness of breath and productive cough with yellowish brown phlegm. The patient increased his home oxygen from 2-3 L, it did not relieve his shortness of breath. Patient mentions he has a recent history of recurrent pneumonias. Past medical history: CVA with residual left-sided weakness, diabetes mellitus on insulin, HFrEF 30%, COPD on 2 L home oxygen, asthma, aortic valve replacement in 2003 on warfarin, CKD stage 4, hypertension, 3 [place] with no stent placement Past surgical history: Aortic valve replacement in 2003 Social & Personal history: lives with caregiver Smoking: Denies Alcohol: Denies Drugs: Denies Allergies: Iodine Patient seen and examined at bedside. Patient is alert and oriented to time, place person and responding to all questions. Eyes: No Pain, No Vision change, No Conjunctivae inflammation, No Eyelid inflammation, No Redness ENT: No Ear pain, No Ear discharge, No Nose pain, No Nose discharge, No Nose congestion, No Mouth pain, No Mouth swelling, No Throat pain, No Throat swelling Cardiovascular: No Chest Pain, No Palpitations, No Orthopnea, No Paroxysmal No Dyspnea, No Edema, No Lt Headedness Respiratory: Cough with sputum, No Dry, Shortness of breath, No SOB with exertion, No Wheezing, No Hemoptysis, No Pleuritic Pain, Gastrointestinal: No Nausea, No Vomiting, No Abdominal Pain, No Diarrhea, No Constipation, No Melena, No Hematochezia Genitourinary: No Dysuria, No Frequency, No Incontinence, No Hematuria, No Retention 09/15/25- The patient was seen and evaluated at bedside today. Echo revealed 40% LVEF, s/p MVAR, severe TR and MR. Patient continued to complain of shortness of breath, oxygen was uptitrated to 2.5 L. Patient was given norco for chronic back pain relief. White count today was 14.6, so sputum culture was sent for analysis. Stool sample was sent for stool occult blood testing as he has anemia. Objective vital signs Vital Sign Date Time Temp Pulse Resp B/P (MAP) Pulse Ox O2 Delivery O2 Flow Rate FiO2 09/15/25 13:00 96.9 73 18 106/76 (86) 100 96.9 09/15/25 11:22 Nasal Cannula* 2 28 Total Intake and Output 09/14/25 09/14/25 09/15/25 15:00 23:00 07:00 Intake Total 50 ml 500 ml Balance 50 ml 500 ml medications Current Medications Medications Dose Ordered Sig/Alexandrea Route Start Time Stop Time Status Last Admin Dose Admin Atorvastatin Calcium 80 mg HS PO 09/14/25 22:00 09/14/25 22:33 80 MG Metoprolol Tartrate 50 mg BID PO 09/14/25 10:00 09/15/25 09:14 50 MG Sacubitril/ Valsartan 1 tab BID PO 09/14/25 10:00 09/15/25 09:13 1 TAB Sodium Bicarbonate 650 mg TID PO 09/14/25 06:00 09/15/25 14:10 650 MG Albuterol 2.5 mg Q6HPRN PRN NEB 09/13/25 22:45 09/14/25 23:08 2.5 MG Diagnostic Test (Pha) 1 strip Q6HR 09/14/25 00:00 09/15/25 12:09 1 STRIP Insulin Human Regular Q6HR SC 09/14/25 00:00 09/15/25 00:56 3 UNITS Dextrose 50 ml UD PRN IV 09/13/25 22:45 Ondansetron HCl 4 mg Q4HP PRN IV 09/13/25 22:45 Acetaminophen 650 mg Q6HP PRN PO 09/13/25 22:45 09/14/25 22:34 650 MG Nitroglycerin 0.4 mg Q5MINP PRN SL 09/13/25 22:45 Morphine Sulfate 2 mg Q30M PRN IV 09/13/25 22:45 Warfarin Sodium RX PROTOCOL PER PHARMACY PO 09/14/25 01:00 Ipratropium [place] 0.5 mg Q6HR NEB 09/14/25 12:00 09/15/25 11:22 0.5 MG Ceftriaxone Sodium 50 ml @ 100 mls/hr DAILY@09 IV 09/14/25 09:00 09/15/25 09:15 100 MLS/HR Doxycycline Monohydrate 100 mg Q12HR PO 09/14/25 10:00 09/15/25 09:14 100 MG Furosemide 20 mg DAILY IV 09/16/25 10:00 Acetaminophen/ Hydrocodone Bitart 1 tab Q6HPRN PRN PO 09/15/25 10:45 09/15/25 10:58 1 TAB Examination General Appearance: Cooperative. Well developed. Well nourished. NAD. Patient currently on 2.5 L oxygen. Head Exam: Normal inspection Neck Exam: Normal inspection. Non-tender. Normal alignment Pulmonary/Respiratory: Chest non-tender. B/L rales, no crackles, no wheezing. Cardiovascular/Chest: Regular rate and rhythm. No murmurs. No JVD. Peripheral Pulses: 2+ Radial (R). 2+ Radial (L). 2+ Pedal (R). 2+ Pedal (L) Abdominal Exam: Normal bowel sounds. Soft. normal abdomen, no visible veins, Nontender. No hepatospenomegaly. No masses Ankle Exam: Negative ankle edema Lower extremities: Negative lower extremity edema Neuro/Mental Status: A&O x4. Coherent., strength 5/5 in right extremities, 3/5 in left upper extremity, 2/5 in left lower extremity Thoughts/Psych: Normal thought pattern. Appropriate mood and affect. Good judgement and insight Skin Exam: Normal inspection. Normal color. Warm. Dry DAYNA: no external hemorrhoids or skin tags on inspection, normal sphincter tone, empty rectal vault, no bleeding Nurse Breanne was present as stacker attendant during the examination. laboratory and microbiology Laboratory Tests 09/15/25 05:33 Test 09/15/25 05:33 Range/Units Serum Glucose 92 # 74-106 mg/dL Microbiology Date/Time Source Procedure Growth Status 09/15/25 06:05 Nose MRSA Screen - Final Complete Labs and/or images reviewed: Labs reviewed by me, Image(s) reviewed by me Problem List/Assessment/Plan Problem List/Assessment/Plan # Acute on chronic decompensated HFrEF 30% # NSTEMI, likely type 2, secondary to above # Nonischemic cardiomyopathy. # Hypertensive heart disease # Severe aortic stenosis status post open-heart with mechanical valve replacement (on warfarin therapy) since 20 years # Mitral valve/tricuspid valve regurgitation, moderate to severe degree. # Pulmonary hypertension # Secondary hypercoagulable state -PT 20.4, INR 2.07 and APTT 32.3, Ddimer 0.84 -cardiology consult- Continue preload and afterload reduction, diuresis with Lasix 40 mg IV b.i.d., GDMT for her HFrEF -Echo LVEF40%, severe MR, moderate MS, severe TR, trivial to small pericardial effusion -continue warfarin per pharmacy, INR today 2.80 -lasix 40mg bid iv -continue metoprolol 50mg bid po -continue entresto 1tab po bid #Acute hypoxic respiratory failure secondary to pneumonia. # Acute pneumonia, likely bacterial -CXR- Cardiomegaly with findings suggestive of congestive heart failure -iv ceftriaxone 1gm iv daily -doxycycline 100mg q12hr po -mednebs with ipratropium 0.5mg q4hr and albuterol 2.5 mg q4hr prn -on 2.5 liter oxygen by nasal canula -respiratory culture sent # Acute kidney injury, likely superimposed on CKD stage 4 -Renal US-Increased bilateral echogenicity -avoid nephrotoxic agents -monitor BNP -Nephrology consult-Continue with furosemide IV 40 mg twice a day, strict urinary output measurement, fluid restriction less than 1 L per day -sodium bicarbonate 650mg tid po # Anemia, likely of chronic kidney disease # Secondary hyperparathyroidism -sample sent for stool occult blood # Diabetes mellius, type 2 with hyperglycemia -HbA1c is 5.6 -mild insulin sliding scale # Transamnitis # Hyperlipidemia -continue lipitor 80 mg hs po # History of CVA DVT prophylaxis: patient on warfarin Goals of care: DNI, discussed for >23 minutes Plan discussed with patient Plan discussed with Dr Rowland Plan discussed with: Patient My Orders My Orders Orders - DRAGAN BEATTY RESIDENT Procedure Category Date Status Time Discontinue Tele MAINE 09/15/25 In Process 06:46 Communication Order ORDERS 09/15/25 Transmitted 06:46 Transfer Orders XFER 09/15/25 Transmitted 06:46 Respiratory Culture CHERISE 09/15/25 Logged W/ Gs 09:59 Stool Occult Blood LAB 09/15/25 Logged 10:35 Hydrocodone-Acet PHA 09/15/25 In Process 5/325mg Tab ([place] 10:45 Code Status CODE 09/15/25 Transmitted 15:01 Date of Service: Sep 15, 2025 Billing Provider: ELIZABETH ROWLAND MD Common Visit Codes: [id number] INP/OBS CARE(HIGH) JACIDRAGAN DORANTES RESIDENT Sep 15, 2025 15:50
[2025-09-15] MEDS ORDERED: ALBUTEROL SULF 2.5 MG/0.5ML(0.5%) NEB SOLN NEB PRN (16:15)
[2025-09-15] MEDS: FUROSEMIDE 40 MG/4 ML VIAL IV ONE (16:54)
--- NOTE | 2025-09-15 22:26 | DVHPN2 ---
Progress Note - Dictate Date Seen: Sep 15, 2025 Medical Necessity Reason Pt with a Central, PICC or Fol: No Subjective Patient was seen and evaluated in follow up. Patient reports feeling the same as yesterday. Patient has chronic back pain, which is worsening. He is on 2 LPM NC. Echocardiogram showed LV EF of 40%. WBC 14.6, BUN 55, [employer] 3. Renal US showed normal sonographic appearance of the kidneys. No hydronephrosis. Thickening of the bladder wall. Bilateral medical renal disease. Telemetry reviewed. vital signs Vital Sign Date Time Temp Pulse Resp B/P (MAP) Pulse Ox O2 Delivery O2 Flow Rate FiO2 09/15/25 11:29 75 18 100 09/15/25 11:22 Nasal Cannula* 2 28 09/15/25 09:14 118/79 09/15/25 09:00 97.0 97.0 Total Intake and Output 09/14/25 09/14/25 09/15/25 15:00 23:00 07:00 Intake Total 50 ml 500 ml Balance 50 ml 500 ml medications Current Medications Medications Dose Ordered Sig/Alexandrea Route Start Time Stop Time Status Last Admin Dose Admin Atorvastatin Calcium 80 mg HS PO 09/14/25 22:00 09/14/25 22:33 80 MG Metoprolol Tartrate 50 mg BID PO 09/14/25 10:00 09/15/25 09:14 50 MG Sacubitril/ Valsartan 1 tab BID PO 09/14/25 10:00 09/15/25 09:13 1 TAB Sodium Bicarbonate 650 mg TID PO 09/14/25 06:00 09/15/25 05:55 650 MG Albuterol 2.5 mg Q6HPRN PRN NEB 09/13/25 22:45 09/14/25 23:08 2.5 MG Diagnostic Test (Pha) 1 strip Q6HR 09/14/25 00:00 09/15/25 12:09 1 STRIP Insulin Human Regular Q6HR SC 09/14/25 00:00 09/15/25 00:56 3 UNITS Dextrose 50 ml UD PRN IV 09/13/25 22:45 Ondansetron HCl 4 mg Q4HP PRN IV 09/13/25 22:45 Acetaminophen 650 mg Q6HP PRN PO 09/13/25 22:45 09/14/25 22:34 650 MG Nitroglycerin 0.4 mg Q5MINP PRN SL 09/13/25 22:45 Morphine Sulfate 2 mg Q30M PRN IV 09/13/25 22:45 Warfarin Sodium RX PROTOCOL PER PHARMACY PO 09/14/25 01:00 Ipratropium [place] 0.5 mg Q6HR NEB 09/14/25 12:00 09/15/25 11:22 0.5 MG Ceftriaxone Sodium 50 ml @ 100 mls/hr DAILY@09 IV 09/14/25 09:00 09/15/25 09:15 100 MLS/HR Doxycycline Monohydrate 100 mg Q12HR PO 09/14/25 10:00 09/15/25 09:14 100 MG Furosemide 20 mg DAILY IV 09/16/25 10:00 Acetaminophen/ Hydrocodone Bitart 1 tab Q6HPRN PRN PO 09/15/25 10:45 09/15/25 10:58 1 TAB objective GENERAL: Alert and oriented x 3. No acute distress. Obese. EYES: PERRL, EOMI. Anicteric. HENT: Moist mucous membranes. LUNGS: Decreased breath sounds. CARDIOVASCULAR: Regular rate and rhythm. ABDOMEN: Soft, nontender and nondistended. Bruising seen on lower abdomen. EXTREMITIES: No edema. NEUROLOGIC: No focal neurological deficits. SKIN: Warm, dry. laboratory and microbiology Laboratory Tests 09/15/25 05:33 Test 09/15/25 05:33 Range/Units Serum Glucose 92 # 74-106 mg/dL Problem List Acute on chronic decompensated HFrEF, NYHA class III. NTSEMI, type II secondary to above. Nonischemic cardiomyopathy. Severe aortic stenosis status post open-heart with mechanical valve replacement (on warfarin therapy). Mitral valve/tricuspid valve regurgitation, moderate to severe degree. Acute hypoxic respiratory failure secondary to pneumonia. Acute kidney injury likely superimposed on CKD stage 4 in the setting of pneumonia. Pulmonary hypertension. Anemia likely chronic kidney disease. Secondary hyperparathyroidism. Hypertension. Hyperlipidemia. History of CVA. Obesity. Assessment/Plan Continued all current supportive medical care. Patient has been seen by Jaylon Mcgee Resident on my behalf, we have discussed the plan with the patient. Continue preload and afterload reduction as tolerated by patient blood pressures and renal function. Continue diuresis with Lasix as tolerated. Continue GDMT for HFrEF as renal function permits, avoid nephrotoxic agents. Maintain Coumadin levels at therapeutic range for an INR in between 2-3. Continue lipid lowering agent. Strict I&Os, cardiac diet, fluid restriction. If the patient is unable to tolerate aggressive preload and afterload reduction, and remains symptomatic, consider transfer to higher level of care for mitral clip evaluation. Nephrology recommendations appreciated. Additional plan as per the hospital course. Plan discussed with: Patient STEVE WARREN MD Sep 15, 2025 13:33
[2025-09-16 00:47] VITALS: BP 124/93; PULSE 81; RESP 16; TEMP 97.5; O2SAT 95
[2025-09-16] MEDS: FUROSEMIDE 40 MG/4 ML VIAL IV SCH (06:00)
[2025-09-16 06:28] LABS: Hematocrit 40.8 % (41.0-53.0); Hemoglobin 13.4 g/dL (13.5-17.5); Mean Corpuscular Hemoglobin 27.9 pg (28.0-32.0); Mean Corpuscular Volume 84.9 fL (80.0-100.0); Nucleated Red Blood Cells % 0.0 %
[2025-09-16 06:39] LABS: INR 3.16 (0.9-1.15); Partial Thromboplastin Time 34.5 SEC (24.5-34.5); Prothrombin Time 29.9 sec (9.3-11.8)
[2025-09-16 06:53] LABS: Anion Gap 14 (5-15); Carbon Dioxide 27 mmol/L (20-31); Chloride 102 mmol/L (98-107); Potassium 4.4 mmol/L (3.5-5.1); Sodium 143 mmol/L (136-145)
[2025-09-16 06:54] LABS: Calcium 8.9 mg/dL (8.7-10.4)
[2025-09-16 06:59] LABS: BUN/Creatinine Ratio 21.9 (10.0-20.0)
[2025-09-16 07:01] LABS: Blood Urea Nitrogen 68 mg/dL (9-23); Glucose 116 mg/dL (74-106)
[2025-09-16 08:00] VITALS: PULSE 83; RESP 18; O2SAT 93
[2025-09-16 08:27] VITALS: PULSE 84; RESP 18; O2SAT 95
[2025-09-16] MEDS: IPRATROPIUM BROM 0.5 MG/2.5ML INH SOL NEB SCH (08:27)
[2025-09-16 08:34] VITALS: PULSE 86; RESP 18; O2SAT 98
[2025-09-16 08:40] VITALS: BP_SYST 108; BP_SYST 116; BP_DIAS 68; BP_DIAS 71; PULSE 69; PULSE 83; RESP 16; RESP 18; TEMP 97.8; TEMP 98.3; O2SAT 98; O2SAT 99
[2025-09-16] MEDS: HYDROcodone-ACET 10/325MG TAB PO PRN (08:59)
[2025-09-16] MEDS ORDERED: FUROSEMIDE 40 MG/4 ML VIAL IV SCH (10:00)
[2025-09-16] MEDS ORDERED: AUG875T PO (10:25)
[2025-09-16 10:54] VITALS: BP 108/71; PULSE 83; RESP 18; TEMP 97.8; O2SAT 99
--- NOTE | 2025-09-16 17:50 | DVHDSRES ---
Discharge Summary Date of Admission Resident Creating Document: DRAGAN BEATTY RESIDENT Sep 13, 2025 at 22:31 Date of Discharge: Sep 16, 2025 Admitting Diagnosis Acute on chronic systolic congestive heart failure Labs/Diagnostic Data: Laboratory Results Test 09/16/25 11:37 09/16/25 05:40 09/14/25 11:06 09/14/25 08:50 POC Glucose 127 mg/dl (70-106) White Blood Count 11.3 10^3/uL (4.4-10.8) Red Blood Count 4.80 10^6/uL (4.5-5.90) Hemoglobin 13.4 g/dL (13.5-17.5) Hematocrit 40.8 % (41.0-53.0) Mean Corpuscular Volume 84.9 fL (80.0-100.0) Mean Corpuscular Hemoglobin 27.9 pg (28.0-32.0) Mean Corpuscular Hemoglobin Concent 32.9 g/dL (32.0-36.0) Red Cell Distribution Width 16.6 % (11.8-14.3) Platelet Count 236 10^3/uL (140-450) Mean Platelet Volume 8.0 fL (6.9-10.8) Neutrophils (%) (Auto) 73.4 % (37.0-80.0) Lymphocytes (%) (Auto) 16.8 % (10.0-50.0) Monocytes (%) (Auto) 5.4 % (0.0-12.0) Eosinophils (%) (Auto) 3.0 % (0.0-7.0) Basophils (%) (Auto) 1.4 % (0.0-2.0) Neutrophils # (Auto) 8.3 10 ^3/uL (1.6-8.6) Lymphocytes # (Auto) 1.9 10 ^3/uL (0.4-5.4) Monocytes # (Auto) 0.6 10 ^3/uL (0-1.3) Eosinophils # (Auto) 0.3 10 ^3/uL (0-0.8) Basophils # (Auto) 0.2 10 ^3/uL (0-0.2) Nucleated Red Blood Cells 0.0 % Prothrombin Time 29.9 sec (9.3-11.8) Prothrombin Time INR 3.16 (0.9-1.15) Activated Partial Thromboplast Time 34.5 SEC (24.5-34.5) Sodium Level 143 mmol/L (136-145) Potassium Level 4.4 mmol/L (3.5-5.1) Chloride Level 102 mmol/L (98-107) Carbon Dioxide Level 27 mmol/L (20-31) Anion Gap 14 (5-15) Blood Urea Nitrogen 68 mg/dL (9-23) Creatinine 3.10 mg/dL (0.700-1.30) Glomerular Filtration Rate Calc 21 mL/min (>90) BUN/Creatinine Ratio 21.9 (10.0-20.0) Serum Glucose 116 mg/dL (74-106) Calcium Level 8.9 mg/dL (8.7-10.4) Influenza Type A Antigen Negative (Negative) Influenza Type B Antigen Negative (Negative) SARS-CoV-2 Antigen (Rapid) Negative (NEGATIVE) Phosphorus Level 4.6 mg/dL (2.4-5.1) Magnesium Level 2.0 mg/dL (1.6-2.6) Vitamin B12 Level 417 pg/mL (211-911) Vitamin D 25-Hydroxy 39.8 ng/mL (30.0-100) Parathyroid Hormone (Intact) 204.8 pg/mL (18.4-80.1) Test 09/14/25 06:32 09/13/25 22:45 09/13/25 19:40 09/13/25 05:20 Hemoglobin A1c 5.6 % A1C (<5.7) Thyroid Stimulating Hormone (TSH) 1.20 uIU/mL (0.55-4.78) D-Dimer, Quantitative 0.84 mg/L FEU (0.0-0.49) Troponin I High Sensitivity 64 ng/L (</=54) Lactic Acid Level 1.2 mmol/L (0.4-2.0) Total Bilirubin 0.9 mg/dL (0.2-1.0) Aspartate Amino Transferase (AST) 108 U/L (13-40) Alanine Aminotransferase (ALT) 124 U/L (7-40) Alkaline Phosphatase 125 U/L (46-116) B-Type Natriuretic Peptide 1913.25 pg/mL (0-100) Total Protein 6.5 g/dL (5.7-8.2) Albumin 4.0 g/dL (3.2-4.8) Urine Color Colorless (Yellow) Urine Clarity Clear (Clear) Urine pH 5.0 (5.0-9.0) Urine Specific Theresa 1.008 (1.001-1.035) Urine Protein 1+ (Negative) Urine Ketones Negative (Negative) Urine Blood Trace /uL (Negative) Urine Nitrite Negative (Negative) Urine Bilirubin Negative (Negative) Urine Urobilinogen Normal mg/dL (Negative) Urine Leukocyte Esterase Negative /uL (Negative) Urine RBC None seen /hpf (0 - 3) Urine Microscopic WBC < 1 /HPF (0-3) Urine Squamous Epithelial Cells None seen /hpf (<5) Urine Bacteria None seen /hpf (None Seen) Urine Glucose Trace mg/dL (Normal) Other Laboratory Tests 09/16/25 05:40 Brief Hx & Hospital Course: Flex Arguello is a 69-year old male with past medical history of CVA with residual left-sided weakness, diabetes mellitus on insulin, HFrEF 30%, COPD on 2 L home oxygen, asthma, aortic valve replacement in 2003 on warfarin, CKD stage 4, hypertension,GA who presented to the ED with the chief complaint of shortness of breath since 3 days. Patient had a recent dental extraction on 09/11/2025, after which he started developing fever and chills along with shortness of breath and productive cough with yellowish brown phlegm. The patient increased his home oxygen from 2-3 L, it did not relieve his shortness of breath. Patient mentioned he has a recent history of recurrent pneumonias. Chest x-ray suggested pneumonia, and patient was started on nebulization every 4 hours and IV antibiotics. He continued to be on 2 L of oxygen while in the hospital. The patient showed improvement with regards to shortness of breath. Echo revealed 40% LVEF, s/p MVAR, severe TR and MR. Cardiology and Nephrology were on board and following up regularly. Warfarin was continued per pharmacy to maintain INR between 2 and 3. He was given Lindsey for chronic back pain relief. He was discharged home in a stable condition on Augmentin 875 mg p.o. b.i.d. for 7 days and transport home with oxygen was arranged for him. All medications and recommendations were thoroughly explained to the patient and he demonstrated understanding of the same. He was recommended to follow up in [facility] clinic within 1 week and with PCP in 1-2 weeks. Past medical history: CVA with residual left-sided weakness, diabetes mellitus on insulin, HFrEF 30%, COPD on 2 L home oxygen, asthma, aortic valve replacement in 2003 on warfarin, CKD stage 4, hypertension, 3 GA with no stent placement Past surgical history: Aortic valve replacement in 2003 Social & Personal history: lives with caregiver Smoking: Denies Alcohol: Denies Drugs: Denies Allergies: Iodine General Appearance: Cooperative. Well developed. Well nourished. NAD. Patient currently on 2.5 L oxygen. Head Exam: Normal inspection Neck Exam: Normal inspection. Non-tender. Normal alignment Pulmonary/Respiratory: Chest non-tender, no crackles, no wheezing. Cardiovascular/Chest: Regular rate and rhythm. No murmurs. No JVD. Peripheral Pulses: 2+ Radial (R). 2+ Radial (L). 2+ Pedal (R). 2+ Pedal (L) Abdominal Exam: Normal bowel sounds. Soft. normal abdomen, no visible veins, Nontender. No hepatospenomegaly. No masses Ankle Exam: Negative ankle edema Lower extremities: Negative lower extremity edema Neuro/Mental Status: A&O x4. Coherent., strength 5/5 in right extremities, 3/5 in left upper extremity, 2/5 in left lower extremity Thoughts/Psych: Normal thought pattern. Appropriate mood and affect. Good judgement and insight Skin Exam: Normal inspection. Normal color. Warm. Dry DAYNA: no external hemorrhoids or skin tags on inspection, normal sphincter tone, empty rectal vault, no bleeding Nurse Breanne was present as telesales advisor during the examination. Operations or Procedures 1.PROCEDURE(s): CXR1 - CHEST XRAY 1 VIEW REASON: SOB ORDER NUMBER(s): [id number], ACCESSION NUMBER(s): [id number] CHEST RADIOGRAPH Indication: SOB Technique: Single frontal view of the chest was obtained Comparison: XY CHEST PORTABLE on DOS: 05/31/25 FINDINGS: Lines and Tubes: None Lungs: No focal consolidation. Diffuse interstitial prominence. Indistinctness of the left hemidiaphragm which may be from overlying cardiac silhouette. No pneumothorax. Cardiomediastinal contours: [id number] cardiomegaly. Midline sternotomy wires are noted. Valvular replacement is noted. Bones: No acute osseous abnormality. IMPRESSION: Cardiomegaly with findings suggestive of congestive heart failure. Underlying infectious process can not be excluded. 2.PROCEDURE(s): KIDUS - KIDNEY REASON: MICHELLE ORDER NUMBER(s): [id number], ACCESSION NUMBER(s): [id number] INDICATION: MICHELLE TECHNIQUE: Multiple real-time sonographic images of the kidneys and bladder were obtained. COMPARISON: US KIDNEY on DOS: 10/16/24, US BILAT LOWER DVT on DOS: 08/10/24, US KIDNEY on DOS: 07/25/24, US LT UPPER DVT on DOS: 06/12/24, US KIDNEY on DOS: 06/06/24 FINDINGS: The right kidney measures 8 cm in length, which is normal in size. . No hydronephrosis. The left kidney measures 10 cm in length, which is normal in size. . No hydronephrosis. Increased bilateral echogenicity. No large intraluminal masses are seen in the bladder. Prior to voiding the bladder volume measures volume 155 cc. IMPRESSION: 1. Normal sonographic appearance of the kidneys. No hydronephrosis. Thickening of the bladder wall. Correlate with UA 2. Bilateral medical renal disease. Condition at Discharge: Fair Final Diagnosis/Problems List Acute on chronic decompensated diastolic heart failure HFrEF 30% NSTEMI, likely type 2, secondary to above Nonischemic cardiomyopathy. Hypertensive heart disease with acute systolic chf Severe aortic stenosis status post open-heart with mechanical valve replacement (on warfarin therapy) since 20 years Mitral valve/tricuspid valve regurgitation, moderate to severe degree. Pulmonary hypertension Secondary hypercoagulable state Acute hypoxic respiratory failure secondary to pneumonia Acute pneumonia, likely bacterial MICHELLE, likely superimposed on CKD stage 4 Anemia, likely of chronic kidney disease Secondary hyperparathyroidism Diabetes mellius, type 2 with hyperglycemia Transamnitis Hyperlipidemia History of CVA Discharge Disposition: Home Discharge Instruct/Medications Diet: Consistent carbohydrate, Cardiac 2g Na,low cholest, Renal Diet comment: consistent carbohydrate and renal Activity: No Restrictions, As Tolerated Follow Up/Referral: follow up in dc clinic in 1 week follow up with PCP in 1-2 weeks Scheduled Amoxicillin & Pot Clavulanate (Augmentin Tablet), 875 MG PO BID Discharge Statement: "Patient was advised to return to the ER or call 911 if any headaches, dizziness, shortness of breath, chest pain, abdominal pain, bleeding, fevers, or worsening of medical condition. Patient was counseled about treatment plan, medications, possible side effects, patientverbalized understanding. All questions were answered to the best of my ability. This discharge took greater then 30 minutes in planning, reviewing documentation, counseling the patient, and discussing with other team members." ASSESSMENT ASSESSMENT Assessment acute CHF exacerbation Date of Service: Sep 16, 2025 Billing Provider: ELZIABETH BECK MD Common Visit Codes: 13894-HPU/OBS DISCH DAY >30min DRAGAN BEATTY RESIDENT Sep 16, 2025 17:50 ELIZABETH BECK MD Sep 17, 2025 16:52
--- NOTE | 2025-09-16 19:07 | DVHPN2 ---
Progress Note - Dictate Date Seen: Sep 16, 2025 Medical Necessity Reason Pt with a Central, PICC or Fol: No Subjective Patient was seen and evaluated in follow up. Patient has no new complaints at this time. Patient denies any cardiac symptoms. Patient is cardiac stable for discharge. Telemetry reviewed. vital signs Vital Sign Date Time Temp Pulse Resp B/P (MAP) Pulse Ox O2 Delivery O2 Flow Rate FiO2 09/16/25 10:54 97.8 83 18 99 09/16/25 08:40 108/71 (83) 09/16/25 08:27 Nasal Cannula 2.5 09/16/25 08:27 28 Total Intake and Output 09/15/25 09/15/25 09/16/25 15:00 23:00 07:00 Intake Total 50 ml 650 ml 1200 ml Output Total 1300 ml 800 ml Balance 50 ml -650 ml 400 ml objective GENERAL: Alert and oriented x 3. No acute distress. Obese. EYES: PERRL, EOMI. Anicteric. HENT: Moist mucous membranes. LUNGS: Decreased breath sounds. CARDIOVASCULAR: Regular rate and rhythm. ABDOMEN: Soft, nontender and nondistended. Bruising seen on lower abdomen. EXTREMITIES: No edema. NEUROLOGIC: No focal neurological deficits. SKIN: Warm, dry. laboratory and microbiology Laboratory Tests 09/16/25 05:40 Test 09/16/25 05:40 Range/Units Serum Glucose 116 H 74-106 mg/dL Problem List Acute on chronic decompensated HFrEF, NYHA class III. NTSEMI, type II secondary to above. Nonischemic cardiomyopathy. Severe aortic stenosis status post open-heart with mechanical valve replacement (on warfarin therapy). Mitral valve/tricuspid valve regurgitation, moderate to severe degree. Acute hypoxic respiratory failure secondary to pneumonia. Acute kidney injury likely superimposed on CKD stage 4 in the setting of pneumonia. Pulmonary hypertension. Anemia likely chronic kidney disease. Secondary hyperparathyroidism. Hypertension. Hyperlipidemia. History of CVA. Obesity. Assessment/Plan Continued all current supportive medical care. Continue diuresis with Lasix as tolerated. Continue GDMT for HFrEF as renal function permits, avoid nephrotoxic agents. Maintain Coumadin levels at therapeutic range for an INR in between 2-3. Continue lipid lowering agent. Strict I&Os, cardiac diet, fluid restriction. If the patient is unable to tolerate aggressive preload and afterload reduction, and remains symptomatic, consider transfer to higher level of care for mitral clip evaluation. Nephrology recommendations appreciated. Additional plan as per the hospital course. Plan discussed with: Patient STEEV WARREN MD Sep 16, 2025 19:07
== END 2025-09-16 12:55 | disposition home or self-care (01) | DRG 280 ==
LOC: ER 18:41 → EDBD 18:41 → OVERFLOW 22:31 → TELE-CENTR 09-14 21:42 → CENTRAL 09-16 06:47
PROVIDERS: ADMIT Internal Medicine; ATTEND Internal Medicine
DX: I13.0 Hypertensive heart and chronic kidney disease with heart failure and stage 1 through stage 4 chronic kidney disease, or unspecified chronic kidney disease (principal); I50.43 Acute on chronic combined systolic (congestive) and diastolic (congestive) heart failure; I21.A1 Myocardial infarction type 2; J18.9 Pneumonia, unspecified organism; J96.01 Acute respiratory failure with hypoxia; N18.4 Chronic kidney disease, stage 4 (severe); I69.354 Hemiplegia and hemiparesis following cerebral infarction affecting left non-dominant side; I27.20 Pulmonary hypertension, unspecified; D63.1 Anemia in chronic kidney disease; J44.0 Chronic obstructive pulmonary disease with (acute) lower respiratory infection; N17.9 Acute kidney failure, unspecified; Z79.01 Long term (current) use of anticoagulants; E11.22 Type 2 diabetes mellitus with diabetic chronic kidney disease; E66.9 Obesity, unspecified; I08.0 Rheumatic disorders of both mitral and aortic valves; N25.81 Secondary hyperparathyroidism of renal origin; D68.69 Other thrombophilia; I42.8 Other cardiomyopathies; R74.01 Elevation of levels of liver transaminase levels; E11.65 Type 2 diabetes mellitus with hyperglycemia; E78.5 Hyperlipidemia, unspecified; G89.29 Other chronic pain; Z95.2 Presence of prosthetic heart valve; Z91.041 Radiographic dye allergy status; Z99.81 Dependence on supplemental oxygen; Z82.49 Family history of ischemic heart disease and other diseases of the circulatory system; Z79.899 Other long term (current) drug therapy; Z68.26 Body mass index [BMI] 26.0-26.9, adult
CPT/HCPCS: 36415; 71045; 76775; 80048; 80053; 81001; 82306; 82607; 82962; 83036; 83605; 83735; 83880; 83970; 84100; 84443; 84484; 85025; 85379; 85610; 85730; 87070; 87081; 87205; 87426; 87804; 93005; 93306; 94640; 96372; G0378; J1815

== ENCOUNTER 2025-09-26 20:50 | Inpatient (IN) | payer OTHER, MEDICAID ==
[~2025-09-26] VITALS: Ht 160 cm; Wt 69.0 kg
--- NOTE | 2025-09-26 23:04 | DVH ---
CHEST RADIOGRAPH Indication: SOB Technique: Single frontal view of the chest was obtained COMPARISON: XY CHEST PORTABLE on DOS: 09/25/25, XY CHEST XRAY 1 VIEW on DOS: 09/13/25, XY CHEST PORTABLE on DOS: 05/31/25 FINDINGS: Lines and Tubes: None Lungs: Mild vascular congestion Pleura: No effusion. No pneumothorax. Cardiomediastinal contours: Cardiomegaly. Bones: Median sternotomy. No acute osseous abnormality IMPRESSION: Cardiomegaly and mild vascular congestion
[2025-09-26 23:27] LABS: Chloride 105 mmol/L (98-107); Potassium 4.1 mmol/L (3.5-5.1); Sodium 140 mmol/L (136-145)
[2025-09-26 23:28] LABS: Anion Gap 13 (5-15); Carbon Dioxide 22 mmol/L (20-31); Hematocrit 34.2 % (41.0-53.0); Hemoglobin 11.4 g/dL (13.5-17.5); Mean Corpuscular Hemoglobin 28.4 pg (28.0-32.0); Mean Corpuscular Volume 85.0 fL (80.0-100.0); Nucleated Red Blood Cells % 0.1 %
[2025-09-26 23:29] LABS: Calcium 8.8 mg/dL (8.7-10.4)
[2025-09-26 23:34] LABS: BUN/Creatinine Ratio 19.0 (10.0-20.0)
[2025-09-26 23:52] LABS: Blood Urea Nitrogen 53 mg/dL (9-23); Glucose 168 mg/dL (74-106)
--- NOTE | 2025-09-27 01:28 | ED.PDOC ---
History of Present Illness HPI Comments 69 y/o M presents with c/c of shortness of breath and productive cough. Patient endorses on 5x day history of progressively worsening symptoms. He states on returning to the ED after, initially, being evaluated for symptoms and found with pneumonia and leaving AMA before being admitted, due to not wanting to miss his colonoscopy appointment. He reports associated bilateral chest wall pain and fever 101.0F at home, today. Denies any nausea, vomiting, chills, or further acute symptoms. Significant history for CHF, CKF III, COPD w/home O2, CVA, DM, HLD, HTN, liver cirrhosis, 3x LA, leaky heart valves s/p replacement, and second-hand tobacco smoke exposure and a family history of heart disease. Chief Complaint: Shortness of Breath Time Seen by MD: 22:20 Reviewed Notes: Nurses Notes, Medications, Allergies Allergies: Coded Allergies: Iodine (Unverified Allergy, Unknown, 05/31/25) Information Source: Patient Mode of Arrival: Ambulatory Severity: Moderate Timing: Days Duration: Since onset Prehospital treatment: None Past Medical History PAST MEDICAL HISTORY: CHF, CKF (stage III), COPD, CVA, DM, High Lipids, HTN, Liver (Cirrhosis of the liver ), LA (3x) Past Medical History (Other): leaky heart valves Significant history for CHF, CKF III, COPD w/home O2, CVA, DM, HLD, HTN, liver cirrhosis, 3x LA, leaky heart valves s/p replacement. Surgical History (Other): heart valve replacement Family History Family History: Reviewed,noncontributory to illness, No family hx of Cancer, No family hx of DM, No family hx of HTN, No family hx ofKidney shoaib, No family hx of Liver shoaib, No family hx of Lung shoaib, No family hx of Stroke, Family hx of heart shoaib Social History Smoker: Secondhand Alcohol: Denies ETOH Use Drugs: Denies Drug Use Lives In: Home Constitutional: denies: chills, diaphoresis, fatigue, fever, malaise, sweats, weakness, others EENTM: denies: blurred vision, double vision, ear bleeding, ear discharge, ear drainage, ear pain, ear ringing, eye pain, eye redness, hearing loss, mouth pain, mouth swelling, nasal discharge, nose bleeding, nose congestion, nose pain, photophobia, tearing, throat pain, throat swelling, voice changes, others Respiratory: reports: cough, shortness of breath; denies: hemoptysis, orthopnea, SOB at rest, SOB with excertion, stridor, wheezing, others Cardiovascular: reports: chest pain; denies: dizzy spells, diaphoresis, Dyspnea on exertion, edema, irregular heart beat, left arm pain, lightheadedness, palpitations, PND, syncope, others Gastrointestinal: denies: abdomen distended, abdominal pain, blood streaked bowels, constipated, diarrhea, dysphagia, difficulty swallowing, hematemesis, melena, nausea, poor appetite, poor fluid intake, rectal bleeding, rectal pain, vomiting, others Genitourinary: denies: burning, dysuria, flank pain, frequency, hematuria, incontinence, penile discharge, penile sore, pain, testicle pain, testicle swelling, urgency, others Neurological: denies: dizziness, fainting, headache, left sided numbness, left sided weakness, numbness, paresthesia, pre-existing deficit, right sided numbness, right sided weakness, seizure, speech problems, tingling, tremors, weakness, others Musculoskeletal: denies: back pain, gout, joint pain, joint swelling, muscle pain, muscle stiffness, neck pain, others Integumetry: denies: bruises, change in color, change in hair/nails, dryness, laceration, lesions, lumps, rash, wounds, others Allergic/Immunocompromised: denies: Difficulty Healing, Frequent Infections, Hives, Itching, others Hematologic/Lymphatic: denies: anemia, blood clots, easy bleeding, easy bruising, swollen glands, others Endocrine: denies: excessive hunger, excessive sweating, excessive thirst, excessive urination, flushing, intolerance to cold, intolerance to heat, u nexplained weight gain, unexplained weight loss, others Psychiatric: denies: anxiety, bipolar disorder, depression, hopeless, panic disorder, schizophrenia, sleepless, suicidal, others All Other Systems: Reviewed and Negative Physical Exam General Appearance: Moderate Distress HEENT: Normal ENT Inspection, Pharynx Normal, TMs Normal Neck: Full Range of Motion, Non-Tender, Normal, Normal Inspection Respiratory: Chest Non-Tender, Decreased Breath Sounds, No Accessory Muscle Use, Respiratory Distress Cardiovascular: No Edema, No JVD, No Murmur, No Gallop, Normal Peripheral Pulses, Regular Rate/Rhythm Breast Exam: Deferred Gastrointestinal: No Organomegaly, Non Tender, No Pulsatile Mass, Normal Bowel Sounds, Soft Genitalia: Deferred Pelvic: Deferred Rectal: Deferred Extremities: No calf tenderness, Normal capillary refill, No pedal edema Musculoskeletal : Apperance: Normal Neurologic: Alert, 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 Was a procedure done?: No EKG EKG : Pulse Rate (adult): 122 [place]: Normal Cardiac Rhythm: ST Block: None Hypertrophy: LAE ST: Normal Differential Dx Considerations may include: PNA, URI, PE, LA, acute COPD exacerbation, acute CHF exacerbation, viral, among others X-Ray, Labs, Meds, VS Vital Signs Date Time Temp Pulse Resp B/P (MAP) Pulse Ox O2 Delivery O2 Flow Rate FiO2 09/27/25 01:28 122 Lab Test 09/26/25 22:32 Range/Units White Blood Count 9.4 4.4-10.8 10^3/uL Red Blood Count 4.02 L 4.5-5.90 10^6/uL Hemoglobin 11.4 L 13.5-17.5 g/dL Hematocrit 34.2 L 41.0-53.0 % Mean Corpuscular Volume 85.0 80.0-100.0 fL Mean Corpuscular Hemoglobin 28.4 28.0-32.0 pg Mean Corpuscular Hemoglobin Concent 33.3 32.0-36.0 g/dL Red Cell Distribution Width 16.2 H 11.8-14.3 % Platelet Count 147 140-450 10^3/uL Mean Platelet Volume 8.0 6.9-10.8 fL Neutrophils (%) (Auto) 85.3 H 37.0-80.0 % Lymphocytes (%) (Auto) 6.9 L 10.0-50.0 % Monocytes (%) (Auto) 5.9 0.0-12.0 % Eosinophils (%) (Auto) 1.3 0.0-7.0 % Basophils (%) (Auto) 0.6 0.0-2.0 % Neutrophils # (Auto) 8.0 1.6-8.6 10 ^3/uL Lymphocytes # (Auto) 0.6 0.4-5.4 10 ^3/uL Monocytes # (Auto) 0.6 0-1.3 10 ^3/uL Eosinophils # (Auto) 0.1 0-0.8 10 ^3/uL Basophils # (Auto) 0.1 0-0.2 10 ^3/uL Nucleated Red Blood Cells 0.1 % Sodium Level 140 136-145 mmol/L Potassium Level 4.1 3.5-5.1 mmol/L Chloride Level 105 98-107 mmol/L Carbon Dioxide Level 22 20-31 mmol/L Anion Gap 13 5-15 Blood Urea Nitrogen 53 H 9-23 mg/dL Creatinine 2.79 H 0.700-1.30 mg/dL Glomerular Filtration Rate Calc 24 >90 mL/min BUN/Creatinine Ratio 19.0 10.0-20.0 Serum Glucose 168 H 74-106 mg/dL Calcium Level 8.8 8.7-10.4 mg/dL Troponin I High Sensitivity 114 *H </=54 ng/L B-Type Natriuretic Peptide 447.85 0-100 pg/mL PROCEDURE(s): CXR1 - CHEST XRAY 1 VIEW IMPRESSION: Cardiomegaly and mild vascular congestion IV Hep-Lock was established The patient was given Lasix 40 mg IV push The BNP is elevated at 447.85 The troponin level is in The chemistry panel shows an elevated BUN creatinine The CBC is within normal limits The patient is being admitted at this time Images Reviewed?: Images reviewed and evaluated by me Time of 1ST Reevaluation: 22:50 Reevaluation 1ST: Unchanged Patient Education/Counseling: Diagnosis, Treatment, Prognosis, Other (need for admission ) Family Education/Counseling: No Family Present SEPSIS Sepsis Screen Date sepsis recognized/suspect: Sep 26, 2025 Time Sepsis recognized/suspect: 2053 Recent Procedure: No On Antibiotic Therapy: No Respiratory Rate >20: No Heart Rate >90: No Temp<36 C (96.8 F) or >38.3 C: No SBP <90 or MAP <65 mmHG: No New Acute Mental Status Change: No Is the patient on CPAP, BIPAP,: No Physician Orders Chest Xray 1 View (09/26/25 22:30) Vital Signs Date Time Temp Pulse Resp B/P (MAP) Pulse Ox O2 Delivery O2 Flow Rate FiO2 09/27/25 01:28 122 Laboratory Tests Test 09/26/25 22:32 White Blood Count 9.4 10^3/uL (4.4-10.8) Departure 1 Departure Time of Disposition: 01:35 Impression: Primary Impression: Acute on chronic diastolic heart failure Additional Impression: Elevated troponin Disposition: ADMITTED INPATIENT Admit to: Tele Condition: Fair Critical Care Note Critical Care Time?: No Stability Stability form required: Yes Unstable for transfer: Telemetry monitoring (Telemetry monitoring required), ED Physician Assesment (Clinical assesment) Heart Score Heart Score: Heart Score Response (Comments) Value History Moderate Suspicious 1 EKG Normal 0 Age >65 2 Risk Factors >3 or Hx ASHD 2 Troponin >3 x's Normal limit 2 Total 7 I personally scribed for ZEN CLINE MD ([email or web address]) on 09/27/25 at 01:27. Electronically submitted by Steve Lacey ([email or web address]). I personally scribed for ZEN CLINE MD ([email or web address]) on 09/27/25 at 01:32. Electronically submitted by Steve Lacey [email or web address]). ZEN CLINE MD Sep 27, 2025 01:27
[2025-09-27] MEDS: LORazepam 2MG/ML-1ML VIAL IV ONE (01:47)
[2025-09-27] MEDS ORDERED: NITROGLYCERIN 0.4 MG SL TAB SL PRN (02:45)
[2025-09-27] MEDS ORDERED: HYDROcodone-ACET 5/325MG TAB PO PRN (02:45)
[2025-09-27] MEDS ORDERED: MORPHINE SULFATE INJ 2 MG/ml SYRG IV PRN (02:45)
[2025-09-27 02:47] VITALS: BP 137/77; PULSE 120; RESP 18; TEMP 99.4; O2SAT 94
[2025-09-27] MEDS: FUROSEMIDE 40 MG/4 ML VIAL IV ONE (02:48)
--- NOTE | 2025-09-27 02:52 | DVHHPRES ---
History of Present Illness Resident Creating Document: SHAHANA PARKER RESIDENT History of Present Illness This is a 69-year-old male with past medical history of DM 2 on insulin, heart failure with reduced ejection fraction EF 40%,COPD on 2 L home oxygen, history of CVA 2002, asthma, aortic valve replacement 2003 on warfarin, CKD stage 4, ex- smoker brought came to ER the complaint of cough and shortness of breathe. Shortness of SOB associated with fever, productive chronic cough but currently denies any chest pain, headache, abdominal pain, dysuria or local focal weakness. Patient had dental extraction on 09/11, following which he started to feel fevers and chills, associated with shortness of breaths and productive cough needs hospitalization on September 14, 2025 and discharged on September 16 with p.o. antibiotic Augmentin. Patient compliance with his home medication. Patient left AMA 09/25/2025 due to schedule for colonoscopy. Patient use walker for ambulation at home. Past Medical/Surgical History: Diabetes Mellitus type 2, HFrEF 40%, COPD with home oxygen 2L, CVA 2002, asthma, CKD stage 4,aortic valve replacement 2003 on warfarin Past Social History: The patient lives at home, smokes 3 cigarettes per day, denies alcohol or illicit drugs abuse. Allergy: Iodine PCP: Brenda Suazo Home medication: [place], Farxiga, Entresto ,trilagy Ellipta, Lopressor , furosemide 40, sodium bicarb, warfarin 3 mg, atorvastatin , ipratropium, omeprazole, insulin lispro, isosorbide dinitrate , ezetimibe . Review of Systems Constitutional: Yes: Weakness, Malaise; No: Fever, Chills, Sweats, Other Eyes: No: Pain, Vision change, Conjunctivae inflammation, Eyelid inflammation, Other, Redness ENT: No: Ear pain, Ear discharge, Nose pain, Nose discharge, Nose congestion, Mouth pain, Mouth swelling, Throat pain, Throat swelling, Other Respiratory: Cough, Shortness of breath, SOB with excertion, Wheezing, Wheezing ; No: Dry, Hemoptysis, Pleuritic Pain, Sputum, Other Cardiovascular: Chest Pain, Orthopnea; No: Palpitations, Paroxysmal Noc. Dyspnea, Edema, Lt Headedness, Other Gastrointestinal: No: Nausea, Vomiting, Abdominal Pain, Diarrhea, Constipation, Melena, Hematochezia, Other Genitourinary: No Dysuria, No Frequency, No Incontinence, No Hematuria, No Retention, No Other Musculoskeletal: No: other, neck pain, shoulder pain, arm pain, back pain, hand pain, leg pain, foot pain Skin: No: Rash, Lesions, Jaundice, Bruising, Other Neurological: No: Weakness, Numbness, Incoordination, Change in speech, Confusion, Seizures, Other Allergies: Coded Allergies: Iodine (Unverified Allergy, Unknown, 05/31/25) Exam Vital Signs Vital Signs Date Time Temp Pulse Resp B/P (MAP) Pulse Ox O2 Delivery O2 Flow Rate FiO2 09/27/25 02:47 99.4 120 18 137/77 (97) 94 99.4 General Appearance: Alert, Oriented X3, Cooperative, mild distress HEENT: Atraumatic, PERRLA, EOMI Respiratory: Other (Mild expiratory wheeze and crackles present bilateral lungs) Cardiovascular: Normal S1, Normal S2, No murmurs, Gallops Abdominal: Normal bowel sounds, Soft, No tenderness Extremities: No clubbing Skin: No rashes, No breakdown Neuro: Normal speech, Normal tone, Sensation intact, Other (Gait instability) Psych/Mental Status: Mental status NL Labs/Xrays Labs Test 09/26/25 22:32 Range/Units White Blood Count 9.4 4.4-10.8 10^3/uL Red Blood Count 4.02 L 4.5-5.90 10^6/uL Hemoglobin 11.4 L 13.5-17.5 g/dL Hematocrit 34.2 L 41.0-53.0 % Mean Corpuscular Volume 85.0 80.0-100.0 fL Mean Corpuscular Hemoglobin 28.4 28.0-32.0 pg Mean Corpuscular Hemoglobin Concent 33.3 32.0-36.0 g/dL Red Cell Distribution Width 16.2 H 11.8-14.3 % Platelet Count 147 140-450 10^3/uL Mean Platelet Volume 8.0 6.9-10.8 fL Neutrophils (%) (Auto) 85.3 H 37.0-80.0 % Lymphocytes (%) (Auto) 6.9 L 10.0-50.0 % Monocytes (%) (Auto) 5.9 0.0-12.0 % Eosinophils (%) (Auto) 1.3 0.0-7.0 % Basophils (%) (Auto) 0.6 0.0-2.0 % Neutrophils # (Auto) 8.0 1.6-8.6 10 ^3/uL Lymphocytes # (Auto) 0.6 0.4-5.4 10 ^3/uL Monocytes # (Auto) 0.6 0-1.3 10 ^3/uL Eosinophils # (Auto) 0.1 0-0.8 10 ^3/uL Basophils # (Auto) 0.1 0-0.2 10 ^3/uL Nucleated Red Blood Cells 0.1 % Sodium Level 140 136-145 mmol/L Potassium Level 4.1 3.5-5.1 mmol/L Chloride Level 105 98-107 mmol/L Carbon Dioxide Level 22 20-31 mmol/L Anion Gap 13 5-15 Blood Urea Nitrogen 53 H 9-23 mg/dL Creatinine 2.79 H 0.700-1.30 mg/dL Glomerular Filtration Rate Calc 24 >90 mL/min BUN/Creatinine Ratio 19.0 10.0-20.0 Serum Glucose 168 H 74-106 mg/dL Calcium Level 8.8 8.7-10.4 mg/dL Troponin I High Sensitivity 114 *H </=54 ng/L B-Type Natriuretic Peptide 447.85 0-100 pg/mL SEPSIS Sepsis Screen Date sepsis recognized/suspect: Sep 26, 2025 Time Sepsis recognized/suspect: 2053 Recent Procedure: No On Antibiotic Therapy: No Respiratory Rate >20: No Heart Rate >90: No Temp<36 C (96.8 F) or >38.3 C: No SBP <90 or MAP <65 mmHG: No New Acute Mental Status Change: No Is the patient on CPAP, BIPAP,: No Physician Orders Chest Xray 1 View (09/26/25 22:30) Admit (09/27/25 02:45) Code Status (09/27/25 02:45) Hydrocodone-Acet 5/325mg Tab ([place] 32 (09/27/25 02:45) Cardiac Diet-2gna,Lofat,Lochol (09/27/25 Breakfast) Nitroglycerin Sublingual (Ntrostat Subli (09/27/25 02:45) Morphine Sulfate Injection (09/27/25 02:45) Oxygen By Nasal Cannula (09/27/25 02:45) Stat Ekg For Chest Pain (09/27/25 02:45) Notify Md Of Changes From Base (09/27/25 02:45) Plastic Duplicator For 24 Hours (09/27/25 02:45) Emergency Dysrhythmia Protocol (09/27/25 02:45) Rhythm Strips Once Every Shift (09/27/25 02:45) Heparin Sodium (Porcine) (09/27/25 10:00) Ceftriaxone Ivpb Rocephin (09/27/25 09:00) Ceftriaxone Ivpb Rocephin (09/27/25 02:45) Doxycycline Tablet (Vibramycin Tablet) (09/27/25 02:45) Doxycycline Tablet (Vibramycin Tablet) (09/27/25 10:00) Furosemide Injection (Lasix Injection) (09/27/25 06:00) Levalbuterol Hcl (Xopenex Medneb) (09/27/25 06:00) Ipratropium Medneb (Atrovent Medneb) (09/27/25 06:00) Vital Signs Date Time Temp Pulse Resp B/P (MAP) Pulse Ox O2 Delivery O2 Flow Rate FiO2 09/27/25 02:47 99.4 120 18 137/77 (97) 94 99.4 09/27/25 01:53 117 22 149/93 (111) 94 09/27/25 01:28 122 Laboratory Tests Test 09/26/25 22:32 White Blood Count 9.4 10^3/uL (4.4-10.8) Medications Medications Dose Ordered Sig/Alexandrea Route Start Time Stop Time Status Last Admin Dose Admin Lorazepam 1 mg ONCE ONCE IV 09/27/25 01:45 09/27/25 01:46 DC 09/27/25 01:47 1 MG Assessment/Plan Assessment/Plan Acute on chronic systolic heart failure, NYHA class III NTSEMI, type II secondary to above Nonischemic cardiomyopathy Severe aortic stenosis status post open-heart with mechanical valve replacement (on warfarin therapy) Mitral valve/tricuspid valve regurgitation, moderate to severe degree Pericardial effusion Essential hypertension Hyperlipidemia Type 2 diabetes mellitus Tachycardia, tachypnea, 2 L oxygen on N/C-on admission In ER patient received furosemide, lorazepam EKG: Sinus tachycardia, heart rate 122, QTC 439, no acute ST changes Troponin: 114 BNP-1687.48> 447.87 CXR-There is cardiomegaly with median sternotomy wires and prosthetic cardiac valve. [id number] pulmonary vascular congestion. Echo on 09/14/2025 showed LVEF 40%, dilated LV cavity, severe mitral regurgitation, moderate mitral stenosis, severe tricuspid regurgitation, small pericardial effusion. Continue preload and afterload reduction as tolerated by patient blood pressures and renal function. Continue Lasix Resume GDMT for HFrEF as renal function permits Maintain Coumadin levels at therapeutic range for an INR in between 2.5-3.5. ( PT 25.1, INR 2.60, PTT 38.8) Ezetimibe -home med Insulin sliding scale Strict I&Os, cardiac diet, fluid restriction Acute hypoxic respiratory failure secondary to pneumonia Sepsis likely pneumonia Gram-positive Gram-negative History of recurrent pneumonia ? COPD exacerbation Pulmonary hypertension Started empiric antibiotic doxycycline and ceftriaxone Breathing treatment Methylprednisone Continue oxygen 2 L COVID and influenza test Blood and sputum culture Monitor lab Patient may benefitted with bronchoscopy to rule out recurrent pneumonia. Acute kidney injury likely superimposed on CKD stage 4 Anemia likely chronic kidney disease Secondary hyperparathyroidism Creatinine 2.79, EGFR 29 Avoid nephrotoxic drugs PTH:204.8 on 09/14/2025 Hemoglobin 11.7 Monitor CBC Nephrology consult Transaminitis Total bilirubin 1.2, AST 63, ALT 91 History of CVA Gait instability Low-back pain Continue pain med Fall precaution Physical therapy Obesity Lifestyle modification Diet: Cardiac GI prophylaxis: Pantoprazole DVT prophylaxis: Warfarin Goals of care discussions. More than 27 minute spent with patient. Full code status. Case discussed with Dr. Rowland. Plan discussed with: Patient, Other (Nurse) My Orders Orders - SHAHANA PARKER RESIDENT Procedure Category Date Status Time Admit ADMIT 09/27/25 Transmitted 02:45 Code Status CODE 09/27/25 Transmitted 02:45 Hydrocodone-Acet PHA 09/27/25 Transmitted 5/325mg Tab ([place] 02:45 Cardiac DIET 09/27/25 Transmitted Diet-2gna,Lofat,Lochol Breakfast Nitroglycerin PHA 09/27/25 Transmitted Sublingual (Ntrostat 02:45 Morphine Sulfate PHA 09/27/25 Transmitted Injection 02:45 Oxygen By Nasal RT 09/27/25 Transmitted Cannula 02:45 Stat Ekg For Chest [place] 09/27/25 Transmitted Pain 02:45 Notify Of Changes [place] 09/27/25 Transmitted From Base 02:45 Plastic Duplicator For [facility] 09/27/25 Transmitted 24 Hours 02:45 Emergency Dysrhythmia [facility] 09/27/25 Transmitted Protocol 02:45 Rhythm Strips Once [facility] 09/27/25 Transmitted Every Shift 02:45 Heparin Sodium [facility] 09/27/25 Transmitted (Porcine) 10:00 Ceftriaxone Ivpb PHA 09/27/25 Transmitted Rocephin 09:00 Ceftriaxone Ivpb PHA 09/27/25 Transmitted Rocephin 02:45 Doxycycline Tablet [facility] 09/27/25 Transmitted (Vibramycin Tablet) 02:45 Doxycycline Tablet [facility] 09/27/25 Transmitted (Vibramycin Tablet) 10:00 Furosemide Injection [facility] 09/27/25 Transmitted (Lasix Injection) 06:00 Levalbuterol Hcl [facility] 09/27/25 Transmitted (Xopenex Medneb) 06:00 Ipratropium Medneb [facility] 09/27/25 Transmitted (Atrovent Medneb) 06:00 Date of Service: Sep 27, 2025 Billing Provider: ELIZABETH ROWLAND MD Common Visit Codes: 87617-EYISTAI INP/OBS CARE (HIGH) Secondary Visit Codes: 24812-[id number] CARE PLAN 30 MINUTES SHAHANA PARKER RESIDENT Sep 27, 2025 02:52
[2025-09-27] MEDS: DOXYCYCLINE 100 MG TAB/CAP PO ONE (03:06)
[2025-09-27] MEDS ORDERED: methylPREDNISolone SOD SUCC 40 MG/ML VL IV ONE (03:30)
--- NOTE | 2025-09-27 05:28 | DVHDSRES ---
Discharge Summary Date of Admission Resident Creating Document: SHAHANA PARKER RESIDENT Sep 27, 2025 at 02:45 Date of Discharge: Sep 27, 2025 Labs/Diagnostic Data: Laboratory Results Test 09/26/25 22:32 White Blood Count 9.4 10^3/uL (4.4-10.8) Red Blood Count 4.02 10^6/uL (4.5-5.90) Hemoglobin 11.4 g/dL (13.5-17.5) Hematocrit 34.2 % (41.0-53.0) Mean Corpuscular Volume 85.0 fL (80.0-100.0) Mean Corpuscular Hemoglobin 28.4 pg (28.0-32.0) Mean Corpuscular Hemoglobin Concent 33.3 g/dL (32.0-36.0) Red Cell Distribution Width 16.2 % (11.8-14.3) Platelet Count 147 10^3/uL (140-450) Mean Platelet Volume 8.0 fL (6.9-10.8) Neutrophils (%) (Auto) 85.3 % (37.0-80.0) Lymphocytes (%) (Auto) 6.9 % (10.0-50.0) Monocytes (%) (Auto) 5.9 % (0.0-12.0) Eosinophils (%) (Auto) 1.3 % (0.0-7.0) Basophils (%) (Auto) 0.6 % (0.0-2.0) Neutrophils # (Auto) 8.0 10 ^3/uL (1.6-8.6) Lymphocytes # (Auto) 0.6 10 ^3/uL (0.4-5.4) Monocytes # (Auto) 0.6 10 ^3/uL (0-1.3) Eosinophils # (Auto) 0.1 10 ^3/uL (0-0.8) Basophils # (Auto) 0.1 10 ^3/uL (0-0.2) Nucleated Red Blood Cells 0.1 % Sodium Level 140 mmol/L (136-145) Potassium Level 4.1 mmol/L (3.5-5.1) Chloride Level 105 mmol/L (98-107) Carbon Dioxide Level 22 mmol/L (20-31) Anion Gap 13 (5-15) Blood Urea Nitrogen 53 mg/dL (9-23) Creatinine 2.79 mg/dL (0.700-1.30) Glomerular Filtration Rate Calc 24 mL/min (>90) BUN/Creatinine Ratio 19.0 (10.0-20.0) Serum Glucose 168 mg/dL (74-106) Calcium Level 8.8 mg/dL (8.7-10.4) Troponin I High Sensitivity 114 ng/L (</=54) B-Type Natriuretic Peptide 447.85 pg/mL (0-100) Other Laboratory Tests 09/26/25 22:32 Brief Hx & Hospital Course: This is a 69-year-old male with past medical history of DM 2 on insulin, heart failure with reduced ejection fraction EF 40%,COPD on 2 L home oxygen, history of CVA 2002, asthma, aortic valve replacement 2003 on warfarin, CKD stage 4, ex- smoker brought came to ER the complaint of cough and shortness of breathe. Shortness of SOB associated with fever, productive chronic cough but currently denies any chest pain, headache, abdominal pain, dysuria or local focal weakness. Patient had dental extraction on 09/11, following which he started to feel fevers and chills, associated with shortness of breaths and productive cough needs hospitalization on September 14, 2025 and discharged on September 16 with p.o. antibiotic Augmentin. Patient compliance with his home medication. Patient left AMA 09/25/2025 due to schedule for colonoscopy. Patient use walker for ambulation at home. Past Medical/Surgical History: Diabetes Mellitus type 2, HFrEF 40%, COPD with home oxygen 2L, CVA 2002, asthma, CKD stage 4,aortic valve replacement 2003 on warfarin Past Social History: The patient lives at home, smokes 3 cigarettes per day, denies alcohol or illicit drugs abuse. Allergy: Iodine PCP: Brenda Suazo Home medication: [place], Farxiga, Entresto ,trilagy Ellipta, Lopressor , furosemide 40, sodium bicarb, warfarin 3 mg, atorvastatin , ipratropium, omeprazole, insulin lispro, isosorbide dinitrate , ezetimibe . Patient left AMA and signed refusal of treatment and AMA form. Hep-Lock and all lines removed. Patient is currently AO x4, have capacity, demonstrates understanding of all risks including worsening risks of morbidity and mortality Which were explained in layman's terms, as indicated by ability to perform teach-back, ample time given for questions and concerns which were answered/addressed. ER physician Dr. Johnston and RN explained and Patient was counseled extensively and was encouraged to return to ER if alarming symptoms presents. Condition at Discharge: Undetermined Final Diagnosis/Problems List Acute on chronic systolic heart failure, NYHA class III NTSEMI, type II secondary to above Nonischemic cardiomyopathy Severe aortic stenosis status post open-heart with mechanical valve replacement (on warfarin therapy) Mitral valve/tricuspid valve regurgitation, moderate to severe degree Pericardial effusion Essential hypertension Hyperlipidemia Type 2 diabetes mellitus Acute hypoxic respiratory failure secondary to pneumonia Sepsis likely pneumonia Gram-positive Gram-negative History of recurrent pneumonia ? COPD exacerbation Pulmonary hypertension Acute kidney injury likely superimposed on CKD stage 4 Anemia likely chronic kidney disease Secondary hyperparathyroidism Transaminitis History of CVA Gait instability Obesity Discharge Disposition: AMA Discharge Instruct/Medications Follow Up/Referral: PCP Cardiology Pulmonary Nephrology Discharge Statement: "Patient was advised to return to the ER or call 911 if any headaches, dizziness, shortness of breath, chest pain, abdominal pain, bleeding, fevers, or worsening of medical condition. Patient was counseled about treatment plan, medications, possible side effects, patientverbalized understanding. All questions were answered to the best of my ability. This discharge took greater then 30 minutes in planning, reviewing documentation, counseling the patient, and discussing with other team members." ASSESSMENT ASSESSMENT Assessment SHAHANA PARKER RESIDENT Sep 27, 2025 05:28
[2025-09-27] MEDS ORDERED: LEVALBUTEROL HCL 1.25 MG/3 ML NEB NEB SCH (06:00)
[2025-09-27] MEDS ORDERED: FUROSEMIDE 20 MG/2 ML VIAL IV SCH (06:00)
[2025-09-27] MEDS ORDERED: IPRATROPIUM BROM 0.5 MG/2.5ML INH SOL NEB SCH (06:00)
[2025-09-27] MEDS ORDERED: HEPARIN SODIUM (PORCINE) 5000 UNITS/ML 1ML VIAL SC SCH (10:00)
[2025-09-27] MEDS ORDERED: DOXYCYCLINE 100 MG TAB/CAP PO SCH (10:00)
[2025-09-27] MEDS ORDERED: methylPREDNISolone SOD SUCC 40 MG/ML VL IV SCH (10:00)
--- NOTE | 2025-09-28 10:30 | ECG ---
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
== END 2025-09-27 03:33 | disposition left against medical advice (07) | DRG 871 ==
LOC: ER 20:50 → OVERFLOW 09-27 02:45
PROVIDERS: ATTEND Emergency Medicine
DX: A41.59 Other Gram-negative sepsis (principal); I21.A1 Myocardial infarction type 2; J96.01 Acute respiratory failure with hypoxia; J15.69 Pneumonia due to other Gram-negative bacteria; J15.9 Unspecified bacterial pneumonia; I50.23 Acute on chronic systolic (congestive) heart failure; I31.39 Other pericardial effusion (noninflammatory); I27.20 Pulmonary hypertension, unspecified; J44.0 Chronic obstructive pulmonary disease with (acute) lower respiratory infection; Z79.02 Long term (current) use of antithrombotics/antiplatelets; Z79.01 Long term (current) use of anticoagulants; I13.0 Hypertensive heart and chronic kidney disease with heart failure and stage 1 through stage 4 chronic kidney disease, or unspecified chronic kidney disease; N18.4 Chronic kidney disease, stage 4 (severe); E11.22 Type 2 diabetes mellitus with diabetic chronic kidney disease; E66.9 Obesity, unspecified; K74.60 Unspecified cirrhosis of liver; I08.3 Combined rheumatic disorders of mitral, aortic and tricuspid valves; J44.1 Chronic obstructive pulmonary disease with (acute) exacerbation; I42.8 Other cardiomyopathies; N25.81 Secondary hyperparathyroidism of renal origin; F17.210 Nicotine dependence, cigarettes, uncomplicated; Z68.26 Body mass index [BMI] 26.0-26.9, adult; E78.5 Hyperlipidemia, unspecified; R74.01 Elevation of levels of liver transaminase levels; R26.89 Other abnormalities of gait and mobility; Z95.2 Presence of prosthetic heart valve; Z86.73 Personal history of transient ischemic attack (TIA), and cerebral infarction without residual deficits; Z91.041 Radiographic dye allergy status; Z79.899 Other long term (current) drug therapy; Z79.4 Long term (current) use of insulin; Z53.29 Procedure and treatment not carried out because of patient's decision for other reasons; Z87.01 Personal history of pneumonia (recurrent)
CPT/HCPCS: 36415; 71045; 80048; 83880; 84484; 85025; 93005; 96365; 96375; G0378